=== PATIENT | male | born 1965 | race Caucasian/White ===

== ENCOUNTER 2016-09-18 13:39 | Emergency (ER) | payer OTHER ==
[~2016-09-18] VITALS: Wt 100.0 kg
[2016-09-18] MEDS ORDERED: MAGNESIUM SULFATE 2 GM, MULTIVITAMINS 10 ML, THIAMINE 100 MG, FOLIC ACID 1 MG in SOD CH... IV STA (13:49)
[2016-09-18] MEDS ORDERED: LORAZEPAM 2 MG INJ IV STA (13:49)
[2016-09-18 14:50] LABS: ADD SCAN DIFF NO
[2016-09-18 14:53] LABS: BASOPHIL # 0.1 10^3/ul (0.0-0.1); EOSINOPHILS # 0.1 10^3/ul (0.0-0.5); EOSINOPHILS % 1.3 % (0.0-7.0); HEMATOCRIT 39.2 % (42.0-52.0); HEMOGLOBIN 13.3 g/dl (14.0-18.0); LYMPHOCYTES % 37.4 % (15.0-51.0); MEAN CORPUSCULAR HEMOGLOBIN 31.7 pg (29.0-33.0); MEAN CORPUSCULAR HGB CONC 33.9 g/dl (32.0-37.0); MEAN CORPUSCULAR VOLUME 93.6 fl (82.0-101.0); MEAN PLATELET VOLUME 10.2 fl (7.4-10.4); MONOCYTE # 0.6 10^3/ul (0.3-0.9); NEUTROPHIL # 4.2 10^3/ul (1.6-7.5); NEUTROPHILS % 52.9 % (39.0-77.0); PLATELET COUNT 249 10^3/UL (140-415); RED BLOOD COUNT 4.19 10^6/ul (4.70-6.10); RED CELL DISTRIBUTION WIDTH 16.9 % (11.5-14.5)
[2016-09-18 15:03] LABS: INR 0.89; PT RATIO 0.9
[2016-09-18 15:04] LABS: PARTIAL THROMBOPLASTIN TIME 26.4 Sec (25.0-35.0)
[2016-09-18] MEDS ORDERED: MULTI PO (15:06)
[2016-09-18 16:04] LABS: ADD UMIC NO; URINE BILIRUBIN (Dip) NEGATIVE (NEGATIVE); URINE BLOOD (Dip) NEGATIVE (NEGATIVE); URINE COLOR LT. YELLOW (YELLOW); URINE GLUCOSE (Dip) NEGATIVE (NEGATIVE); URINE KETONES (Dip) NEGATIVE (NEGATIVE); URINE LEUKOCYTE ESTERASE (Dip) NEGATIVE (NEGATIVE); URINE NITRITE (Dip) NEGATIVE (NEGATIVE); URINE TOTAL PROTEIN (Dip) NEGATIVE (NEGATIVE); URINE UROBILINOGEN (Dip) 0.2 E.U./dL (0.1-1.0)
[2016-09-18] MEDS ORDERED: morphine 4 MG/ML VIAL IV STA (16:25)
[2016-09-18] MEDS ORDERED: ONDANSETRON 4 MG INJ IV STA (16:25)
[2016-09-18 16:28] LABS: ALBUMIN 4.1 g/dl (3.3-4.9)
[2016-09-18 16:29] LABS: CHLORIDE 100 mmol/L (97-110); POTASSIUM 3.7 mmol/L (3.5-5.1); SODIUM 139 mmol/L (135-144)
[2016-09-18 16:31] LABS: ALANINE AMINOTRANSFERASE 45 IU/L (13-69); ALBUMIN/GLOBULIN RATIO 1.07; ALKALINE PHOSPHATASE 76 IU/L (42-121); ANION GAP 21 (8-16); ASPARTATE AMINO TRANSFERASE 57 IU/L (15-46); BILIRUBIN,INDIRECT 0.3 mg/dl (0-1.1); BILIRUBIN,TOTAL 0.3 mg/dl (0.2-1.3); BLOOD UREA NITROGEN 9 mg/dl (7-20); CARBON DIOXIDE 22 mmol/L (21-31); CREATININE 0.78 mg/dl (0.61-1.24); GLUCOSE 157 mg/dl (70-220); TOTAL PROTEIN 7.9 g/dl (6.1-8.1)
[2016-09-18 16:32] LABS: CALCIUM 9.2 mg/dl (8.4-10.2); SALICYLATE < 1.0 mg/dl (5.0-30.0)
[2016-09-18 16:33] LABS: ACETAMINOPHEN < 10.0 ug/ml (10.0-30.0)
[2016-09-18 16:42] LABS: BARBITURATES Negative (NEGATIVE); BENZODIAZEPINES Negative (NEGATIVE); CANNABINOIDS Negative (NEGATIVE); COCAINE Negative (NEGATIVE); OPIATES Negative (NEGATIVE)
--- NOTE | 2016-09-18 18:28 | ERD ---
ER Documentation Chief Complaint Date/Time DATE: 09/18/16 TIME: 18:25 Chief Complaint ALCOHOL INTOXICATION AND STATES WANTS TO STOP DRINKING, NO SEIZURE ACTIVITY HPI This is a 51-year-old male homeless who presents to the emergency department stating he is experiencing tremors and is concerned that he is going to undergo alcohol withdrawal. The patient indicated his last drink was 6 hours prior to arrival. He drinks alcohol on a daily basis. He denies any fever shaking or chills and no seizure activity. He denies a headache and denies any recent remote blunt or penetrating head trauma. He denies any hemoptysis hematemesis or melanotic stools. He presented to the emergency department brought in by EMS ROS All systems reviewed and are negative except as per history of present illness. Medications Home Meds Reported Medications Multivitamins* (Theragran*) 1 Tab Tab, 1 TAB PO DAILY, TAB 09/18/16 Allergies Allergies: Coded Allergies: No Known Allergy (Unverified , 09/18/16) Physical Exam Vitals Vital Signs Date Time Temp Pulse Resp B/P Pulse Ox O2 Delivery O2 Flow Rate FiO2 09/18/16 14:03 98.2 105 21 130/84 98 Physical Exam Constitutional:Well-developed. Well-nourished. Disheveled. HEENT:Normocephalic. Atraumatic.Pupils were equal round reactive to light. Moist mucous membranes.No tonsillar exudates. No nasoseptal hematoma. No hemotympanum. Neck: No nuchal rigidity. No lymphadenopathy. No posterior cervical spine tenderness or step-offs. Respiratory: Not using accessory muscles of respiration.Lungs were clear to auscultation bilaterally. No rhonchi. No rales. No wheezing. Cardiovascular: Regular rate regular rhythm.No murmurs. No rubs were appreciated.S1, S2 normal. Distal pulses are palpable 2+ bilaterally. GI: Abdomen was soft. Nontender. Non Distended. No pulsatile abdominal masses or bruits. No rebound. No guarding. Bowel sounds were present and normal. Muscle skeletal: Full range of motion of both the upper and lower extremities bilaterally.Normal muscle tone.No assymetrical calf tenderness or swelling. Skin: No petechia, no purpura. No lesions on the palms or the soles of the feet. No maculopapular rash. NEURO: Patient was alert, awake, orientated x3.No facial droop. Gait observed and normal with no ataxia.Speech had regular rate and rhythm. No focal neurological deficits. Patient smelled of alcohol. Result Diagram: 09/18/16 1445 09/18/16 1600 Results 24 hrs Laboratory Tests Test 09/18/16 14:45 09/18/16 15:00 09/18/16 16:00 White Blood Count 8.010^3/ul Red Blood Count 4.1910^6/ul Hemoglobin 13.3g/dl Hematocrit 39.2% Mean Corpuscular Volume 93.6fl Mean Corpuscular Hemoglobin 31.7pg Mean Corpuscular Hemoglobin Concent 33.9g/dl Red Cell Distribution Width 16.9% Platelet Count 91150^3/UL Mean Platelet Volume 10.2fl Neutrophils % 52.9% Lymphocytes % 37.4% Monocytes % 7.0% Eosinophils % 1.3% Basophils % 1.0% Nucleated Red Blood Cells % 0.0/100WBC Neutrophils # 4.210^3/ul Lymphocytes # 3.010^3/ul Monocytes # 0.610^3/ul Eosinophils # 0.110^3/ul Basophils # 0.110^3/ul Nucleated Red Blood Cells # 0.010^3/ul Prothrombin Time 12.0Sec Prothrombin Time Ratio 0.9 INR International Normalized Ratio 0.89 Activated Partial Thromboplast Time 26.4Sec Urine Color LT. YELLOW Urine Clarity CLEAR Urine pH 5.5 Urine Specific Raphine 1.020 Urine Ketones NEGATIVE Urine Nitrite NEGATIVE Urine Bilirubin NEGATIVE Urine Urobilinogen 0.2 E.U./dL Urine Leukocyte Esterase NEGATIVE Urine Hemoglobin NEGATIVE Urine Glucose NEGATIVE% Urine Total Protein NEGATIVE Urine Opiates Screen Negative Urine Barbiturates Negative Urine Amphetamines Screen Negative Urine Benzodiazepines Screen Negative Urine Cocaine Screen Negative Urine Cannabinoids Negative Sodium Level 139mmol/L Potassium Level 3.7mmol/L Chloride Level 100mmol/L Carbon Dioxide Level 22mmol/L Anion Gap 21 Blood Urea Nitrogen 9mg/dl Creatinine 0.78mg/dl Glucose Level 157mg/dl Calcium Level 9.2mg/dl Total Bilirubin 0.3mg/dl Direct Bilirubin 0.00mg/dl Indirect Bilirubin 0.3mg/dl Aspartate Amino Transf (AST/SGOT) 57IU/L Alanine Aminotransferase (ALT/SGPT) 45IU/L Alkaline Phosphatase 76IU/L Total Protein 7.9g/dl Albumin 4.1g/dl Globulin 3.80g/dl Albumin/Globulin Ratio 1.07 Salicylates Level < 1.0mg/dl Acetaminophen Level < 10.0ug/ml Ethyl Alcohol Level 150.0mg/dl Current Medications Medications (Trade) Dose Ordered Sig/Katie Route PRN Reason Start Time Stop Time Status Last Admin Dose Admin Magnesium Sulfate/ Multivitamins/ Thiamine HCl/ Folic Acid/Sodium Chloride (Magnesium Sulfate/Mvi Adult/ Vitamin B1/Folic Acid/NS) 1,015.2 ml @ 500 mls/ hr Q2H2M STAT IV 09/18/16 13:49 09/18/16 15:50 DC 09/18/16 13:00 Lorazepam (Ativan) 1 mg ONCE STAT IV 09/18/16 13:49 09/18/16 13:55 DC 09/18/16 14:58 Morphine Sulfate (morphine) 4 mg ONCE STAT IV 09/18/16 16:25 09/18/16 16:28 DC 09/18/16 17:06 Ondansetron HCl (Zofran Inj) 4 mg ONCE STAT IV 09/18/16 16:25 09/18/16 16:28 DC 09/18/16 17:06 Procedures/MDM This patient presented to the emergency department with acute alcohol intoxication. The patient was very polite and compliant denied any suicidal homicidal thoughts or ideations. The patient had IV access was established in the emergency department received a banana bag which included folic acid thiamine and a multivitamin. The patient is serum ethanol of 150. Patient had no anemia or electrolyte abnormalities. 12 Lead EKG tracing ordered and reviewed by myself showed: Normal sinus rhythm of 85 bpm and no arrhythmia. RI interval normal. QRS duration normal. No ST segment elevation No ST segment depression. Q waves present in the lateral leads V4 V5 V6 less than 1 mm as well as the inferior leads Observation Note: Time: 4 hours Family Hx: No Hypertension Evaluation: Multiple exams showed improving symptoms and no evidence of impending delirium tremors. The patient was stating he was having diffuse myalgias and is requesting analgesic medication. He received intravenous morphine and Zofran. The patient was refusing a social work consult as he states he resides in various homeless shelters. The patient was discharged home in fair condition. They were instructed to return to the emergency department at any time if there was any worsening of their condition. The patient stated they would follow up with their PCP in the next 24-48 hours to initiate a suitable medication regimen under the care of their PCP as well as to allow their PCP to monitor any drug reactions. The patient was discharged home with prescriptions after they gave informed consent to the new medication. They were also fully informed by myself on the adverse effects and adverse drug interactions in order to provide adequate safeguards to prevent possible adverse reactions to medications. Departure Diagnosis: Primary Impression: Alcoholic intoxication Complication of substance-induced condition: uncomplicated Qualified Code: F10.120 - Alcoholic intoxication, uncomplicated Condition: Fair VIKA YANG Sep 18, 2016 18:28
[2016-09-18] MEDS ORDERED: DICLOFENAC SODIUM 37.5 MG/ML VIAL IV STA (19:16)
[2016-09-18] MEDS ORDERED: LORAZEPAM 2 MG INJ IV ONE (21:00)
[2016-09-18] MEDS ORDERED: CHLORDIAZEPOXIDE 25 MG CAP PO ONE (21:00)
[2016-09-18 22:30] VITALS: BP 200/90; PULSE 89; RESP 18
== END 2016-09-18 22:30 | disposition home or self-care (01) ==
LOC: E/R 13:39
DX: F10.120 Alcohol abuse with intoxication, uncomplicated (principal); R40.2142 Coma scale, eyes open, spontaneous, at arrival to emergency department; R40.2252 Coma scale, best verbal response, oriented, at arrival to emergency department; R40.2362 Coma scale, best motor response, obeys commands, at arrival to emergency department
CPT/HCPCS: 80053; 80306; 80307; 81003; 85025; 85610; 85730; 93005; J2060; J2270; J2405; J3411; J3475; J7030; Z7610; 96374; 96375; 96376

== ENCOUNTER 2016-10-01 12:30 | Emergency (ER) | payer SELFPAY ==
[~2016-10-01] VITALS: Ht 170.2 cm; Wt 85.0 kg
[~2016-10-01 12:30] MED LIST: MULTI PO
[2016-10-01 12:38] VITALS: Ht 170.2 cm; Wt 85.0 kg
== END 2016-10-01 16:02 | disposition left against medical advice (07) ==
LOC: E/R 12:30
DX: Z53.21 Procedure and treatment not carried out due to patient leaving prior to being seen by health care provider (principal)

== ENCOUNTER 2016-10-03 13:13 | Emergency (ER) | payer OTHER ==
[~2016-10-03] VITALS: Ht 177.8 cm; Wt 100.0 kg
[2016-10-03 13:50] VITALS: Ht 177.8 cm; Wt 100.0 kg
--- NOTE | 2016-10-03 13:53 | ERD ---
ER Documentation Chief Complaint Date/Time DATE: 10/03/16 TIME: 13:50 Chief Complaint HPI 51-year-old male, homeless, history of alcohol abuse who presents because he was found outside of a supermarket. He describes slight tremor. He states that his last drink was 9 AM this morning. Patient denies any hematemesis, no melena, no abdominal pain, no falls or head injury. He states that he feels generally weak and dehydrated. ROS All systems reviewed and are negative except as per history of present illness. Medications Home Meds Reported Medications Multivitamins* (Theragran*) 1 Tab Tab, 1 TAB PO DAILY, TAB 09/18/16 Allergies Allergies: Coded Allergies: No Known Allergy (Unverified , 09/18/16) PMhx/Soc History of Surgery: No Anesthesia Reaction: No Hx Neurological Disorder: No Hx Respiratory Disorders: No Hx Cardiac Disorders: No Hx Psychiatric Problems: No Hx Miscellaneous Medical Probl: No Hx Alcohol Use: Yes (ALCOHOL ABUSE) FmHx Family History: No diabetes Physical Exam Vitals Vital Signs Date Time Temp Pulse Resp B/P Pulse Ox O2 Delivery O2 Flow Rate FiO2 10/03/16 13:50 98.3 89 18 123/65 100 Physical Exam General: Disheveled, malodorous, eating a sandwich and drinking liquids without difficulty Head: Normocephalic, atraumatic. Eyes: Pupils equally reactive, EOM intact ENT: Moist mucous membranes Neck: Supple, no lymphadenopathy Respiratory: Lungs clear bilaterally, no distress Cardiovascular: RRR, no murmurs, rubs, or gallops Abdominal: Soft, non-tender, non-distended, no peritoneal signs : Deferred MSK: No edema, no unilateral swelling, 5/5 strength Neurologic: Alert and oriented, moving all extremities, normal speech, no focal weakness, no cerebellar signs, no asterixis, no resting tremor Skin: No rash Psych: Normal mood Results 24 hrs Current Medications Medications (Trade) Dose Ordered Sig/Katie Route PRN Reason Start Time Stop Time Status Last Admin Dose Admin Lorazepam (Ativan) 1 mg ONCE ONCE PO 10/03/16 14:00 10/03/16 14:01 Thiamine HCl (Vitamin B1) 100 mg ONCE ONCE PO 10/03/16 14:00 10/03/16 14:01 Folic Acid (Folic Acid) 1 mg ONCE ONCE PO 10/03/16 14:00 10/03/16 14:01 Procedures/MDM The patient presents with signs and symptoms consistent with chronic alcohol abuse clinically however the patient does not exhibit any signs of acute alcohol withdrawal. He has no tachycardia, no hypertension, no tremor, no altered mental status. No signs of complication such as hepatic encephalopathy , hematemesis or GI bleed. The patient is tolerating oral intake without difficulty. He was able to drink 2 things of juice and eat a complex carbohydrate meal. The patient was given 1 mg of p.o. Ativan was given thiamine and folic acid. At this time the patient does not warrant laboratory testing or further diagnostic imaging. He is able to orally hydrate. The patient has no evidence of head injury. At this time there is no sign of acute pathology. The patient can be safely discharged. He was offered social work manager resources and refused. The patient is steady on his feet. We discussed follow up with the patient's primary care doctor within 24 to 48 hours as needed. We also discussed return to the emergency room for worsening symptoms or worsening condition. Outpatient referral: [None required] Discharge Medications: The patient is not a candidate for outpatient benzodiazepines given persistent alcohol abuse. Departure Diagnosis: Primary Impression: Alcohol abuse Additional Impression: Mild dehydration Condition: Stable Patient Instructions: Alcohol Abuse Referrals: COMMUNITY CLINICS YOU HAVE RECEIVED A MEDICAL SCREENING EXAM AND THE RESULTS INDICATE THAT YOU DO NOT HAVE A CONDITION THAT REQUIRES URGENT TREATMENT IN THE EMERGENCY DEPARTMENT. FURTHER EVALUATION AND TREATMENT OF YOUR CONDITION CAN WAIT UNTIL YOU ARE SEEN IN YOUR DOCTORS OFFICE WITHIN THE NEXT 1-2 DAYS. IT IS YOUR RESPONSIBILITY TO MAKE AN APPOINTMENT FOR FOLOW-UP CARE. IF YOU HAVE A PRIMARY DOCTOR --you should call your primary doctor and schedule an appointment IF YOU DO NOT HAVE A PRIMARY DOCTOR YOU CAN CALL OUR PHYSICIAN REFERRAL HOTLINE AT IF YOU CAN NOT AFFORD TO SEE A PHYSICIAN YOU CAN CHOSE FROM THE FOLLOWING [facility] CLINICS [facility] [address] [facility] [address] [facility]. [facility] [address] [facility] [address] [facility] [address] [facility] [facility] [address] [facility]. [facility] YOU HAVE RECEIVED A MEDICAL SCREENING EXAM AND THE RESULTS INDICATE THAT YOU DO NOT HAVE A CONDITION THAT REQUIRES URGENT TREATMENT IN THE EMERGENCY DEPARTMENT. FURTHER EVALUATION AND TREATMENT OF YOUR CONDITION CAN WAIT UNTIL YOU ARE SEEN IN YOUR DOCTORS OFFICE WITHIN THE NEXT 1-2 DAYS. IT IS YOUR RESPONSIBILITY TO MAKE AN APPOINTMENT FOR FOLOW-UP CARE. IF YOU HAVE A PRIMARY DOCTOR --you should call your primary doctor and schedule and appointment IF YOU DO NOT HAVE A PRIMARY DOCTOR YOU CAN CALL OUR PHYSICIAN REFERRAL HOTLINE AT . IF YOU CAN NOT AFFORD TO SEE A PHYSICIAN YOU CAN CHOSE FROM THE FOLLOWING [facility] INSTITUTIONS: [facility] [address] [place] [address] [facility] [address] [place] [address] [facility] [address] [place] [address] JUAN MANUEL VIDAL MD October 03, 2016 13:53
[2016-10-03] MEDS ORDERED: LORAZEPAM 1 MG TAB PO ONE (14:00)
[2016-10-03] MEDS ORDERED: FOLIC ACID 1 MG TAB PO ONE (14:00)
[2016-10-03] MEDS ORDERED: THIAMINE 100 MG TAB PO ONE (14:00)
[2016-10-03 14:18] VITALS: BP 113/62; PULSE 70; RESP 18; TEMP 98.6
== END 2016-10-03 14:20 | disposition home or self-care (01) ==
LOC: E/R 13:13
DX: F10.10 Alcohol abuse, uncomplicated (principal); E86.0 Dehydration; R40.2142 Coma scale, eyes open, spontaneous, at arrival to emergency department; R40.2252 Coma scale, best verbal response, oriented, at arrival to emergency department; R40.2362 Coma scale, best motor response, obeys commands, at arrival to emergency department
CPT/HCPCS: Z7502; Z7610; 99283

== ENCOUNTER 2016-10-05 18:15 | Emergency (ER) | payer OTHER ==
[~2016-10-05] VITALS: Ht 177.8 cm; Wt 95.0 kg
[2016-10-05 18:28] VITALS: Ht 177.8 cm; Wt 95.0 kg
[2016-10-05] MEDS ORDERED: PHENYTOIN 100 MG CAP PO ONE (18:30)
[2016-10-05] MEDS ORDERED: LORAZEPAM 1 MG TAB PO ONE (18:30)
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
== END 2016-10-05 19:12 | disposition home or self-care (01) ==
LOC: E/R 18:15
DX: F10.230 Alcohol dependence with withdrawal, uncomplicated (principal); F17.210 Nicotine dependence, cigarettes, uncomplicated
CPT/HCPCS: 82962; Z7502; Z7610; 99283

== ENCOUNTER 2016-10-06 16:13 | Emergency (ER) | payer OTHER ==
[~2016-10-06] VITALS: Ht 177.8 cm; Wt 90.9 kg
[2016-10-06 16:26] VITALS: Ht 177.8 cm; Wt 90.9 kg
[2016-10-06 19:40] VITALS: BP 108/56; PULSE 107; RESP 20; TEMP 98.4
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
== END 2016-10-06 19:46 | disposition home or self-care (01) ==
LOC: E/R 16:13
DX: F10.120 Alcohol abuse with intoxication, uncomplicated (principal); F17.210 Nicotine dependence, cigarettes, uncomplicated; R40.2142 Coma scale, eyes open, spontaneous, at arrival to emergency department; R40.2252 Coma scale, best verbal response, oriented, at arrival to emergency department; R40.2362 Coma scale, best motor response, obeys commands, at arrival to emergency department
CPT/HCPCS: 99282

== ENCOUNTER 2017-04-01 19:25 | Emergency (ER) | payer MEDICAID, OTHER ==
[~2017-04-01] VITALS: Ht 167.6 cm; Wt 91.0 kg
[2017-04-01 19:36] VITALS: Ht 167.6 cm; Wt 91.0 kg
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
[2017-04-01 23:54] VITALS: BP 125/80; PULSE 94; RESP 18; TEMP 98.8
== END 2017-04-01 23:39 | disposition home or self-care (01) ==
LOC: E/R 19:25
DX: T51.94XA Toxic effect of unspecified alcohol, undetermined, initial encounter (principal); F17.210 Nicotine dependence, cigarettes, uncomplicated; R40.2142 Coma scale, eyes open, spontaneous, at arrival to emergency department; R40.2242 Coma scale, best verbal response, confused conversation, at arrival to emergency department; R40.2362 Coma scale, best motor response, obeys commands, at arrival to emergency department
CPT/HCPCS: 82962; Z7502; 99283

== ENCOUNTER 2017-04-06 01:12 | Emergency (ER) | payer MEDICAID ==
[~2017-04-06] VITALS: Ht 177.8 cm; Wt 98.4 kg
[2017-04-06 01:28] VITALS: Ht 177.8 cm; Wt 98.4 kg
[2017-04-06] MEDS ORDERED: SOD CHLORIDE 0.9% 1,000 ML IV STA (02:12)
--- NOTE | 2017-04-06 03:19 | RADRPT ---
PROCEDURE: XR Chest. CLINICAL INDICATION: Abdominal pain TECHNIQUE: AP Portable chest. COMPARISON: No pertinent prior examinations were submitted for comparison. FINDINGS: The cardiomediastinal silhouette is normal.The aortic arch is calcified. No focal consolidation, ple ural effusion or pneumothorax is seen. The osseous structures are intact. IMPRESSION: No radiographic evidence of acute cardiopulmonary disease. Aortic atherosclerosis. Physician Dennis Date Time Electronically viewed and signed by Jarrod Car Physician on 04/06/2017 03:19 /
--- NOTE | 2017-04-06 05:58 | ERD ---
ER Documentation Chief Complaint Chief Complaint abdominal pain. states been drinking etoh, had seizure episode? HPI 52 year old alcoholic male complaining of chest pain and shortness of breath that started after he states he had "delirium tremens" 4 hours ago. He denies headache, syncope, abdominal pain, fever, or chills. He complains of occasional nausea and vomiting with occasional blood in his stools, no melena. He states the pain in his chest is aching, constant, nonradiating. No alleviating or exacerbating factors. He denies any focal numbness, weakness in his extremities. ROS All systems reviewed and are negative except as per history of present illness. Medications Home Meds Active Scripts Cephalexin* (Keflex*) 500 Mg Capsule, 500 MG PO TID for 7 Days, CAP Prov:VICKEY MALLOY MD 04/06/17 Discontinued Reported Medications Multivitamins* (Theragran*) 1 Tab Tab, 1 TAB PO DAILY, TAB 09/18/16 Allergies Allergies: Coded Allergies: No Known Drug Allergies (Verified Allergy, Unknown, 04/06/17) PMhx/Soc Medical and Surgical Hx: pt denies Medical Hx, pt denies Surgical Hx Hx Alcohol Use: Yes Hx Tobacco Use: Yes FmHx Family History: No diabetes Physical Exam Vitals Vital Signs Date Time Temp Pulse Resp B/P Pulse Ox O2 Delivery O2 Flow Rate FiO2 04/06/17 12:58 98.2 88 20 142/66 98 Room Air 04/06/17 06:30 98 144/65 98 Room Air 04/06/17 01:28 98.1 77 20 129/69 95 Physical Exam Const: disheveled, dirty. foul smelling. sleeping, arousable. no tremors, no apparent distress. not diaphoretic Head: Atraumatic Eyes: Normal Conjunctiva ENT: Normal External Ears, Nose and Mouth. Neck: Full range of motion..~ No meningismus. Resp: Clear to auscultation bilaterally Cardio: Regular rate and rhythm, no murmurs. cap refill <2 seconds Abd: Soft, non tender, non distended. Normal bowel sounds Skin: No petechiae or rashes Back: No midline or flank tenderness. Right buttock with abrasion and diffuse erythema without fluctuance. tender and warm to palpation. no crepitus. Rectal: No gross blood in rectal vault. 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 extremities Psych: Normal Mood and Affect Result Diagram: 04/06/175 04/06/17424 Results 24 hrs Laboratory Tests Test 04/06/17 04:25 04/06/17 07:00 04/06/17 07:22 White Blood Count 6.810^3/ul Red Blood Count 4.1810^6/ul Hemoglobin 13.9g/dl Hematocrit 41.3% Mean Corpuscular Volume 98.8fl Mean Corpuscular Hemoglobin 33.3pg Mean Corpuscular Hemoglobin Concent 33.7g/dl Red Cell Distribution Width 13.7% Platelet Count 40994^3/UL Mean Platelet Volume 10.1fl Neutrophils % 51.3% Lymphocytes % 36.2% Monocytes % 7.8% Eosinophils % 3.7% Basophils % 0.7% Nucleated Red Blood Cells % 0.0/100WBC Neutrophils # 3.510^3/ul Lymphocytes # 2.510^3/ul Monocytes # 0.510^3/ul Eosinophils # 0.310^3/ul Basophils # 0.110^3/ul Nucleated Red Blood Cells # 0.010^3/ul Sodium Level 143mmol/L Potassium Level 4.7mmol/L Chloride Level 104mmol/L Carbon Dioxide Level 27mmol/L Anion Gap 17 Blood Urea Nitrogen 6mg/dl Creatinine 0.70mg/dl Glucose Level 95mg/dl Calcium Level 9.1mg/dl Total Bilirubin 0.2mg/dl Direct Bilirubin 0.00mg/dl Indirect Bilirubin 0.2mg/dl Aspartate Amino Transf (AST/SGOT) 29IU/L Alanine Aminotransferase (ALT/SGPT) 32IU/L Alkaline Phosphatase 95IU/L Troponin I < 0.012ng/ml < 0.012ng/ml Total Protein 7.7g/dl Albumin 3.7g/dl Globulin 4.00g/dl Albumin/Globulin Ratio 0.92 Lipase 98U/L Stool Occult Blood POSITIVE Current Medications Medications (Trade) Dose Ordered Sig/Katie Route PRN Reason Start Time Stop Time Status Last Admin Dose Admin Sodium Chloride (NS) 1,000 ml @ 1,000 mls/hr Q1H STAT IV 04/06/17 02:12 04/06/17 03:11 DC 04/06/17 04:01 Chlordiazepoxide (Librium) 50 mg ONCE ONCE PO 04/06/17 06:30 04/06/17 06:31 DC 04/06/17 08:15 Famotidine (Pepcid) 20 mg ONCE STAT PO 04/06/17 06:53 04/06/17 06:55 DC 04/06/17 08:15 Miscellaneous Medication (Gi Cocktail (2)) 40 ml ONCE STAT PO 04/06/17 06:53 04/06/17 06:55 DC 04/06/17 08:15 Acetaminophen (Tylenol Tab) 1,000 mg ONCE STAT PO 04/06/17 12:05 04/06/17 12:09 DC 04/06/17 12:10 Acetaminophen (Tylenol Tab) 500 mg STK-MED ONCE .ROUTE 04/06/17 12:08 04/06/17 12:09 DC Procedures/MDM EMERGENT LABS AND DIAGNOSTIC STUDIES: Lab Results above were reviewed and interpreted by me. CBC within normal limits CMP within normal limits with no uremia Troponin within normal limits 12-lead EKG was interpreted by Yael Malloy MD: Sinus tachycardia at 102 bpm Normal axis Normal intervals No acute ST or T wave changes suggestive of acute ischemia or STEMI. Radiology Results as interpreted by Radiology below were reviewed by SYari Malloy MD: CXR: no acute abnormalities, aortic atherosclerosis noted. Initial Nursing notes reviewed. Previous Medical Records requested via the Electronic Health Record. EMERGENCY DEPARTMENT COURSE / MEDICAL DECISION MAKING: This is an alcoholic patient presenting with multiple complaints. Vitals were only remarkable for mild tachycardia upon arrival. There is no evidence of delirium tremens. He may have some mild alcohol withdrawal, but when I first approached him he was sleeping comfortably in bed. Cardiac workup was initiated. His heart score is 2. Initial troponin and EKG did not show evidence of ischemia. He did also complain that he had some occasional hematemesis and occasional blood in his stools. However his hemoglobin is within normal limits today and his BUN is not elevated. His rectal exam did not show any gross blood or melena. At this point I believe the patient is stable for discharge with continued outpatient follow-up if his repeat troponin is within normal limits. I signed out to the oncoming physician, Dr. Archuleta, pending repeat troponin. If this is normal, she was instructed to discharge the patient. I spoke with the patient regarding this and recommended outpatient follow-up. 1 dose of Librium was given here while he was waiting. Patient remained hemodynamically stable. Patient's blood pressure was elevated (>120/80) but appears stable without evidence of hypertensive emergency or urgency. The patient was counseled about the risks of hypertension and urged to pursue outpatient monitoring and therapy within a week with their primary care physician. Departure Diagnosis: Primary Impression: Chest pain Chest pain type: unspecified Qualified Code: R07.9 - Chest pain, unspecified type Additional Impression: Cellulitis of buttock, right Condition: Fair VICKEY MALLOY MD Apr 06, 2017 05:58
[2017-04-06] MEDS ORDERED: CHLORDIAZEPOXIDE 25 MG CAP PO ONE (06:30)
[2017-04-06] MEDS ORDERED: FAMOTIDINE 20 MG TAB PO STA (06:53)
[2017-04-06] MEDS ORDERED: LIDOCAINE/MYLANTA 40 ML BTL PO STA (06:53)
[2017-04-06] MEDS ORDERED: CEPH-443 PO (07:04)
[2017-04-06] MEDS ORDERED: ACETAMINOPHEN 500 MG TAB PO STA (12:05)
[2017-04-06] MEDS ORDERED: ACETAMINOPHEN 500 MG TAB ONE (12:08)
[2017-04-06 12:58] VITALS: BP 142/66; PULSE 88; RESP 20; TEMP 98.2
== END 2017-04-06 13:00 | disposition home or self-care (01) ==
LOC: EDBD → E/R 01:12 → MERGE 01:12 → E/R 13:00
DX: L03.317 Cellulitis of buttock (principal); Z87.891 Personal history of nicotine dependence
CPT/HCPCS: 71010; 80053; 82270; 83690; 84484; 85025; 93005; J7030; Z7502; Z7610

== ENCOUNTER 2017-04-29 12:15 | Inpatient (IN) | payer MEDICAID, OTHER ==
[2017-04-29] VITALS (14 sets, daily range): BP systolic 120–154; BP diastolic 62–114; PULSE 73–93; RESP 14–31; Ht 177.8 cm; Wt 97.2 kg
[~2017-04-29] VITALS: Ht 177.8 cm; Wt 97.2 kg
[~2017-04-29 12:15] MED LIST changes: +CEPH-443 PO; -MULTI PO
[2017-04-29] MEDS ORDERED: HYDR-3671 PO (12:57)
[2017-04-29] MEDS ORDERED: no (12:57)
[2017-04-29] MEDS ORDERED: FOLI-49 PO (12:57)
[2017-04-29] MEDS ORDERED: ENOX120D3 SQ (12:57)
[2017-04-29] MEDS ORDERED: NICO1PAT6 TD (12:57)
[2017-04-29] MEDS ORDERED: METO25TA4 PO (12:57)
[2017-04-29] MEDS ORDERED: PHEN125O2 PO (12:57)
[2017-04-29] MEDS ORDERED: THIA100T10 PO (12:57)
[2017-04-29] MEDS ORDERED: AMLO-147 PO (12:57)
[2017-04-29] MEDS ORDERED: HEPARIN 1000 UNITS/ML 10 ML INJ ONE (13:43)
[2017-04-29] MEDS ORDERED: LIDOCAINE 1% (MDV) 20 ML INJ ONE (13:43)
[2017-04-29] MEDS ORDERED: IODIXANOL LOCM 100 ML BTL ONE (13:43)
[2017-04-29] MEDS ORDERED: FENTAnyl 50 MCG/ML VIAL ONE ×2 (13:44→14:29)
[2017-04-29] MEDS ORDERED: NITROGLYCERIN (IC) 100 MCG/ML INJ ONE (13:44)
[2017-04-29] MEDS ORDERED: MIDAZOLAM 1 MG/ML 2 ML INJ ONE ×2 (13:44→14:28)
[2017-04-29] MEDS ORDERED: VERAPAMIL 5 MG INJ ONE (13:44)
[2017-04-29] MEDS ORDERED: SOD CHLORIDE 0.9% 500 ML ONE (13:44)
[2017-04-29] MEDS ORDERED: BIVALIRUDIN 250MG /NS 50 ML 50 ML IVPB ONE (14:18)
[2017-04-29] MEDS ORDERED: ASPIRIN 325 MG TAB ONE (14:19)
[2017-04-29] MEDS ORDERED: CLOPIDOGREL 300 MG TAB ONE (14:19)
[2017-04-29] MEDS ORDERED: SOD CHLORIDE 0.9% 1,000 ML IV SCH (15:03)
--- NOTE | 2017-04-29 15:09 | CONS ---
Date/Time of Note Date/Time of Note DATE: 04/29/17 TIME: 15:06 Assessment/Plan Assessment/Plan Chief Complaint/Hosp Course NSTEMI s/p PCI of mid PDA with Integrity 2.5 x 22 bare metal stent CAD: nonobstructive intermediate disease of the prox RCA and mid LAD to be managed medically Alcohol abuse: counseled on cessation Homeless: social work eval for resources Plan: -ASA 81mg lifelong -plavix at least one month, preferably one year -lipitor 40mg -metoprolol 25mg -social work eval Problems: Consultation Date/Type/Reason Admit Date/Time Date of Consultation: Apr 29, 2017 Type of Consultation: Interventional Cardiology Reason for Consultation NSTEMI Referring Provider: DOMINICK LEO MD Hx of Present Illness 52 yo M with a h/o alcohol abuse, homeless, who presented with intoxication and chest pain to [facility]. Trops were elevated to 0.3 so pt had a cardiac CT which showed possible obstructive LAD and Cx disease as well as an obstructive PDA lesion. The pt was transferred to [facility] for cardiac cath which confirmed intermediate disease in the LAD and obstructive disease in the PDA for which he is now s/p PCI. Bare metal stent was used as the pt may not have appropriate outpt follow-up and with possible compliance issues. per HPI Past Medical History alcohol abuse Social History Smoking Status: Current every day smoker Exam/Review of Systems Vital Signs Vitals Vital Signs Date Time Temp Pulse Resp B/P Pulse Ox O2 Delivery O2 Flow Rate FiO2 04/29/17 12:42 98.8 16 132/66 99 Room Air Exam Constitutional: alert, oriented Psych: nl mood/affect, no complaints Head: atraumatic, normocephalic Eyes: nl conjunctiva Neck: supple, No jvd Respiratory: clear to auscultation, No crackles/rales Cardiovascular: regular rate and rhythm, No edema, No systolic murmur Gastrointestinal: non-tender, soft Musculoskeletal: nl extremities to inspection Neurological: nl mental status, nl speech MANISH INTERIANO Apr 29, 2017 15:09
--- NOTE | 2017-04-29 15:12 | OPR ---
Date/Time of Note Date/Time of Note DATE: 04/29/17 TIME: 15:09 Operative Report Preoperative Diagnosis NSTEMI Postoperative Diagnosis NSTEMI Surgeon see signature line Customer Support Technician none Anesthesia Type: moderate sedation Estimated Blood Loss: minimal Transfusion none Specimen none Grafts/Implants none Complications none Procedure Description Procedure Date:04/29/2017 Nuclear Medicine Specialist/surgeon: Manish Tatum MD. Procedures Performed: 1)Left heart catheterization with selective left and right coronary angiography. 2)Balloon angioplasty and stenting of the mid PDA with a Integrity 2.5 x 22 bare metal stent. Pre-operative Diagnosis:NSTEMI Post-operative Diagnosis: NSTEMI Indications: 52 yo M with a h/o alcohol abuse, homeless, who presented with intoxication and chest pain to [facility]. Trops were elevated to 0.3 so pt had a cardiac CT which showed possible obstructive LAD and Cx disease as well as an obstructive PDA lesion. The pt was transferred to [facility] for cardiac cath. I had an extensive conversation with the pt regarding medication compliance and the risk of stent thrombosis and should he need a stent and miss doses of his antiplatelets. He reassured me that he would take his medications, stop alcohol abuse, and get outpt follow-up (has insurance). Description of Procedure: After informed consent, the patient was brought to the cardiac catheterization lab. The procedure site was prepped and draped in usual manner. The patient was premedicated with versed 2 mg and fentanyl 50 mcg. 3 mL lidocaine was injected into the right wrist. Next using the posterior wall technique, the 6/ 5 tajik sheath was inserted into the right radial artery. Next using the JL3.5 and Ted right, selective angiography of the left and right coronary arteries were obtained. Hemodynamics were obtained when the JR catheter inadvertently entered the LV. Left ventricle angiography was not obtained. The decision was made to proceed with PCI of the PDA due to the obstructive nature of the lesion and NSTEMI. Bare metal stent was used due to alcoholism, possible noncompliance, homelessness. A JR 4 guide was advanced and engaged into the right coronary artery. After appropriate anticoagulation and antiplatelets were given, the Runthrough angioplasty wire was advanced past the lesion. Next the 2.0 X 12 balloon was used to dilate the lesion times 2 at a maximum of 8 genoveva. Subsequently, the Integrity 2.5 x 22 stent was advanced to the lesion and deployed at 10 genoveva. Next the stent was post dilated with the 2.5 X 12 noncompliant balloon times 2at a maximum of 12 genoveva. Final angiography revealed GARRETT 3 flow, no edge dissection, and appropriate stent expansion. Images of the proximal RCA were reobtained and showed ~50% disease which will be managed medically Next all equipment was removed and hemostasis was achieved by TR band. Findings: Anatomy/Hemodynamics: Left main:short, luminal irregularities LAD:mid 40% Diagonal:luminal irregularities Circumflex:20 % plaquing Obtuse marginal: large OM without significant disease. A very small subbranch (< 0.5mm vessel) has diffuse 99% disease) RCA:prox 50%, mid 30-40% PDA: mid 90% LV angiography:not done LV-Ao: no gradient LVEDP: 11 mmHg Contrast used: 135 mL Fluoroscopy time:16.5 min Medications used: Versed 2 Fentanyl 50 Radial cocktail: 5000 units heparin, 2.5 verapamil, 200 NTG angiomax ASA 325mg plavix 600mg Equipment used: 6 tajik JR 4 guide Runthrough angioplasty wire 2 x 12 balloon Integrity 2.5 x 22 bare metal stent 2.5 x 12 noncompliant balloon Estimated blood loss<10 mL. Specimen: none Grafts/implants: none Complications: none Assessment: NSTEMI s/p PCI of mid PDA with Integrity 2.5 x 22 bare metal stent CAD: nonobstructive intermediate disease of the prox RCA and mid LAD to be managed medically Alcohol abuse: counseled on cessation Homeless: social work eval for resources Plan: -ASA 81mg lifelong -plavix at least one month, preferably one year MANISH TATUM Apr 29, 2017 15:12
[2017-04-29] MEDS ORDERED: ONDANSETRON 4 MG INJ IV PRN (15:30)
[2017-04-29] MEDS ORDERED: morphine 2 MG INJ IV PRN (15:30)
[2017-04-29] MEDS: CHLORDIAZEPOXIDE 5 MG CAP PO SCH ×2 (16:30→21:04)
[2017-04-29] MEDS: LORAZEPAM 2 MG INJ IV PRN ×2 (16:53→21:25)
[2017-04-29] MEDS: NICOTINE (21 MG/24 HR) PATCH TRANSDERM SCH (18:10)
--- NOTE | 2017-04-29 20:57 | HP ---
DATE OF ADMISSION: 04/29/2017 CHIEF COMPLAINT: Non-STEMI. HISTORY OF PRESENT ILLNESS: This is a 52-year-old alcoholic male with a past medical history of ETO H abuse, who presented to an outside hospital with complaints of chest pain and shortness of breath. The patient was admitted to an outside hospital, was seen by cardiology, was noted to have unstabl e angina, ruled in for a possible non-STEMI. The patient was treated medically and then transferred to [facility], where he was seen by Dr. Tatum and underwent elective cardiac catheterization. The patient had PCI and bare metal stent placed to the diagonal artery. Th e patient tolerated procedure well without any acute complications. Upon my evaluation of the patient at this time, the patient states that he is a heavy alcoholic, dri nking 1 pint of vodka a day and 12 to 24 packs of beer daily. The patient states that he feels that he is currently going through withdrawals, and he has gone through alcoholic withdrawals before. T here have been no reports of hemoptysis, hematemesis, hematochezia. PAST MEDICAL HISTORY: History of alcohol abuse. FAMILY HISTORY: Noncontributory. SOCIAL HISTORY: Positive tobacco use. Positive alcohol abuse. MEDICATIONS: The patient's medications have been reviewed. PAST SURGICAL HISTORY: None. ALLERGIES: NONE. REVIEW OF SYSTEMS: A 14-point review of systems was conducted. Pertinent positives stated in HPI, otherwise negative. PHYSICAL EXAMINATION: VITALS: Blood pressure is 154/79, respirations 31, pulse 83, temperature 97.6. HEENT: Head is normocephalic. NECK: Supple. HEART: Regular rate. LUNGS: Show diminished breath sounds at the base. ABDOMEN: Soft, nontender to palpation. No rebound or guarding. EXTREMITIES: Negative for clubbing, cyanosis. No edema. DERMATOLOGIC: No rashes. MUSCULOSKELETAL: No joint effusions. NEUROLOGIC: No change in exam. MEDICATIONS: The patient's medications have been reviewed. LABORATORY DATA: From outside hospital was reviewed. ASSESSMENT AND PLAN: This is a 52-year-old male who presents with: 1. Non-ST elevation myocardial infarction. Patient is status post PCI to the [facility]. Plan is to continue current medical management, continue aspirin, Plavix, continue metoprolol, continue Lipitor and monitor closely. Follow up with cardiology. 2. History of ETOH abuse with early withdrawal. We will start the patient on Librium and Ativan. We will adjust medications, up titrate as needed. 3. Hypertension. Continue current blood pressure regimen. 4. Dyslipidemia. Continue statin therapy. 5. Homelessness. We will place a social media job titles and a caseworker consult for placement. Please note I spent up to 25 minutes of [id number] time with the patient. The patient is FULL COD E. Dictated By: AIDA WHEELER/ELIZABETH Conf#: [id number] DID#: [id number]
[2017-04-29] MEDS: METOPROLOL 25 MG TAB PO SCH (21:03)
[2017-04-29] MEDS: ATORVASTATIN 40 MG TAB PO SCH (21:03)
[2017-04-30] VITALS (24 sets, daily range): BP systolic 98–156; BP diastolic 49–105; PULSE 69–90; RESP 10–32
[2017-04-30 05:44] LABS: BASOPHIL # 0.1 10^3/ul (0.0-0.1); BASOPHILS % 1.1 % (0.0-2.0); EOSINOPHILS # 0.3 10^3/ul (0.0-0.5); EOSINOPHILS % 4.2 % (0.0-7.0); HEMATOCRIT 40.9 % (42.0-52.0); HEMOGLOBIN 13.5 g/dl (14.0-18.0); LYMPHOCYTES # 2.1 10^3/ul (0.8-2.9); LYMPHOCYTES % 29.2 % (15.0-51.0); MEAN CORPUSCULAR HEMOGLOBIN 33.1 pg (29.0-33.0); MEAN CORPUSCULAR VOLUME 100.2 fl (82.0-101.0); MEAN PLATELET VOLUME 11.1 fl (7.4-10.4); MONOCYTE # 0.9 10^3/ul (0.3-0.9); MONOCYTES % 12.7 % (0.0-11.0); NEUTROPHIL # 3.9 10^3/ul (1.6-7.5); NEUTROPHILS % 52.7 % (39.0-77.0); PLATELET COUNT 248 10^3/UL (140-415); RED BLOOD COUNT 4.08 10^6/ul (4.70-6.10); RED CELL DISTRIBUTION WIDTH 14.3 % (11.5-14.5); WHITE BLOOD COUNT 7.3 10^3/ul (4.8-10.8)
[2017-04-30 06:29] LABS: CALCIUM 9.6 mg/dl (8.4-10.2); CREATININE 0.82 mg/dl (0.61-1.24); MAGNESIUM 2.1 mg/dl (1.7-2.5); PHOSPHORUS 4.2 mg/dl (2.5-4.9); POTASSIUM 4.6 mmol/L (3.5-5.1)
[2017-04-30] MEDS: CLOPIDOGREL 75 MG TAB PO SCH (08:21)
[2017-04-30] MEDS: NICOTINE (21 MG/24 HR) PATCH TRANSDERM SCH (08:22)
[2017-04-30] MEDS: LISINOPRIL 10 MG TAB PO SCH (08:22)
[2017-04-30] MEDS: ASPIRIN 81 MG TAB PO SCH (08:22)
[2017-04-30] MEDS: METOPROLOL 25 MG TAB PO SCH ×2 (08:22→21:03)
[2017-04-30] MEDS: CHLORDIAZEPOXIDE 5 MG CAP PO SCH ×3 (08:22→21:03)
--- NOTE | 2017-04-30 08:45 | PN ---
DATE: 04/30/2017 SUBJECTIVE: The patient is stable. No events overnight. The patient was agitated, although improv ed with Ativan. No overt signs of delirium tremens. No chest pain, no shortness of breath. OBJECTIVE: VITAL SIGNS: Blood pressure is 156/95, respiration 27, pulse 78, temperature 97.8. HEENT: Head is normocephalic. NECK: Supple. HEART: Regular rate. LUNGS: Show diminished breath sounds at the base. ABDOMEN: Soft, nontender to palpation. No rebound or guarding. EXTREMITIES: Negative for clubbing, cyanosis, no edema. DERMATOLOGIC: No rashes. MUSCULOSKELETAL: No joint effusions. NEUROLOGIC: No change in exam. MEDICATIONS: Reviewed. LABORATORY DATA: Shows white count 7.3, hemoglobin 13.5, platelet count 248. BMP within normal ruiz its. ASSESSMENT AND PLAN: 1. Non-ST elevation myocardial infarction. The patient is status post percutaneous coronary interv ention to the mid posterior descending artery. Plan is to continue medical management. Continue as pirin, Plavix, metoprolol. Continue Lipitor. Follow up with cardiology. 2. Hypertension. Continue metoprolol. We will start the patient on lisinopril 10 mg daily and mon itor closely. Treat underlying pain. 3. Dyslipidemia. Continue statin therapy. 4. Alcohol abuse with early withdrawal. Continue Librium, Ativan. We will give patient a banana b ag. 5. Debility. We will place a physical therapy consult for evaluation. CASE MANAGEMENT: The patient is homeless, will need placement. Dictated By: AIDA WHEELER/ELIZABETH Conf#: [id number] DID#: [id number]
[2017-04-30] MEDS: MULTIVITAMINS 10 ML, THIAMINE 100 MG, FOLIC ACID 1 MG in SOD CHLORIDE 0.9% 1,000 ML IVPB SCH (09:46)
[2017-04-30 10:23] LABS: ADD UMIC YES; UR ASCORBIC ACID NEGATIVE (NEGATIVE); UR BACTERIA FEW /HPF (NONE SEEN); UR BILIRUBIN (Dip) NEGATIVE (NEGATIVE); UR BLOOD (Dip) NEGATIVE (NEGATIVE); UR CLARITY CLEAR (CLEAR); UR COLOR STRAW (YELLOW); UR GLUCOSE (Dip) NEGATIVE (NEGATIVE); UR KETONES (Dip) NEGATIVE (NEGATIVE); UR LEUKOCYTE ESTERASE (Dip) 2+ Leu/ul (NEGATIVE); UR NITRITE (Dip) NEGATIVE (NEGATIVE); UR RBC 5 /HPF (0-5); UR SPECIFIC GRAVITY (Dip) 1.004 (1.003-1.030); UR TOTAL PROTEIN (Dip) NEGATIVE (NEGATIVE); UR UROBILINOGEN (Dip) NEGATIVE (NEGATIVE)
--- NOTE | 2017-04-30 18:33 | CONS ---
Date/Time of Note Date/Time of Note DATE: 04/30/17 TIME: 18:32 Assessment/Plan Assessment/Plan Chief Complaint/Hosp Course NSTEMI s/p PCI of mid PDA with Integrity 2.5 x 22 bare metal stent CAD: nonobstructive intermediate disease of the prox RCA and mid LAD to be managed medically Alcohol abuse: counseled on cessation Homeless: social work eval for resources -ASA 81mg lifelong -plavix at least one month, preferably one year -lipitor 40mg -metoprolol 25mg -management of withdrawals per primary -transfer to tele -dispo per primary Problems: Consultation Date/Type/Reason Admit Date/Time Apr 29, 2017 at 15:06 Initial Consult Date 04/29/17 Type of Consultation: Interventional Cardiology Referring Provider: DOMINICK LEO MD 24 HR Interval Summary Free Text/Dictation No o/n events. No CP or SOB Exam/Review of Systems Vital Signs Vitals Vital Signs Date Time Temp Pulse Resp B/P Pulse Ox O2 Delivery O2 Flow Rate FiO2 04/30/17 18:00 76 17 137/87 92 Room Air 04/30/17 16:00 98.1 Intake and Output 04/29/17 04/29/17 04/30/17 14:59 22:59 06:59 Intake Total 2025 ml 800 ml Output Total 720 ml 1510 ml Balance 1305 ml -710 ml Exam Constitutional: alert, oriented Psych: nl mood/affect, no complaints Head: atraumatic, normocephalic Neck: No jvd Respiratory: clear to auscultation, No crackles/rales Cardiovascular: regular rate and rhythm, No edema Gastrointestinal: non-tender, soft Neurological: nl mental status, nl speech Results Result Diagram: 04/30/17 0400 04/30/17 0400 Results 24 hrs Laboratory Tests Test 04/30/17 04:00 04/30/17 09:36 White Blood Count 7.3 Red Blood Count 4.08 L Hemoglobin 13.5 L Hematocrit 40.9 L Mean Corpuscular Volume 100.2 Mean Corpuscular Hemoglobin 33.1 H Mean Corpuscular Hemoglobin Concent 33.0 Red Cell Distribution Width 14.3 Platelet Count 248 Mean Platelet Volume 11.1 H Neutrophils % 52.7 Lymphocytes % 29.2 Monocytes % 12.7 H Eosinophils % 4.2 Basophils % 1.1 Nucleated Red Blood Cells % 0.0 Neutrophils # 3.9 Lymphocytes # 2.1 Monocytes # 0.9 Eosinophils # 0.3 Basophils # 0.1 Nucleated Red Blood Cells # 0.0 Sodium Level 141 Potassium Level 4.6 Chloride Level 105 Carbon Dioxide Level 27 Anion Gap 14 Blood Urea Nitrogen 13 Creatinine 0.82 Glucose Level 105 Calcium Level 9.6 Phosphorus Level 4.2 Magnesium Level 2.1 Urine Color STRAW Urine Clarity CLEAR Urine pH 7.0 Urine Specific [place] 1.004 Urine Ketones NEGATIVE Urine Nitrite NEGATIVE Urine Bilirubin NEGATIVE Urine Urobilinogen NEGATIVE Urine Leukocyte Esterase 2+ H Urine Microscopic RBC 5 Urine Microscopic WBC 10 H Urine Bacteria FEW A Urine Hemoglobin NEGATIVE Urine Random Creatinine 26.53 Urine Random Sodium 50 Urine Glucose NEGATIVE Urine Total Protein 15.0 H Medications Medications Current Medications Morphine Sulfate (morphine) 2 mg Q2H PRN IV FOR NON CARDIAC PAIN (4-10) Last administered on 04/30/17 07:30; Admin Dose 2 MG; Start 04/29/17 at 15:30 Ondansetron HCl (Zofran Inj) 4 mg Q4H PRN IV NAUSEA AND/OR VOMITING; Start at 15:30 Aspirin (Aspirin) 81 mg DAILY PO Last administered on 04/30/17 08:22; Admin Dose 81 MG; Start 04/30/17 at 09:00 Clopidogrel Bisulfate (plaVIX) 75 mg DAILY PO Last administered on 04/30/17 08:21; Admin Dose 75 MG; Start 04/30/17 at 09:00 Atorvastatin Calcium (Lipitor) 40 mg HS PO Last administered on 04/29/17 21: 03; Admin Dose 40 MG; Start 04/29/17 at 21:00 Metoprolol Tartrate (Lopressor) 25 mg BID PO Last administered on 04/30/17 08 :22; Admin Dose 25 MG; Start 04/29/17 at 21:00 Nicotine (Nicoderm 21 Mg/ 24hr) 1 patch DAILY TRANSDERM Last administered on 08:22; Admin Dose 1 PATCH; Start 04/29/17 at 16:30 Lorazepam (Ativan) 1 mg Q4H PRN IV WITHDRAWALS Last administered on 04/29/17 21:25; Admin Dose 1 MG; Start 04/29/17 at 16:30 Chlordiazepoxide (Librium) 10 mg TID PO Last administered on 04/30/17 12:40; Admin Dose 10 MG; Start 04/29/17 at 16:30 Acetaminophen (Tylenol Tab) 650 mg Q6H PRN PO PAIN AND OR ELEVATED TEMP; Start 04/30/17 at 07:00 Influenza Virus Vaccine (Fluzone) 0.5 ml ONCE ONCE IM* ; Start 05/02/17 at 09:00 ; Stop 05/02/17 at 09:01 Lisinopril 10 mg 10 mg DAILY PO Last administered on 04/30/17 08:22; Admin Dose 10 MG; Start 04/30/17 at 09:00 Multivitamins/ Thiamine HCl/ Folic Acid/Sodium Chloride (Mvi Adult/ Vitamin B1/ Folic Acid/NS) 1,011.2 ml @ 125 mls/ hr DAILY@09 IVPB Last administered on 09:46; Admin Dose 125 MLS/HR; Start 04/30/17 at 09:00 MANISH INTERIANO Apr 30, 2017 18:33
[2017-04-30] MEDS: ATORVASTATIN 40 MG TAB PO SCH (21:03)
[2017-05-01] VITALS (10 sets, daily range): BP systolic 123–155; BP diastolic 61–86; PULSE 68–73; RESP 17–20
[2017-05-01] MEDS: ASPIRIN 81 MG TAB PO SCH (08:34)
[2017-05-01] MEDS: MULTIVITAMINS 10 ML, THIAMINE 100 MG, FOLIC ACID 1 MG in SOD CHLORIDE 0.9% 1,000 ML IVPB SCH (08:34)
[2017-05-01] MEDS: CLOPIDOGREL 75 MG TAB PO SCH (08:34)
[2017-05-01] MEDS: LISINOPRIL 10 MG TAB PO SCH (08:35)
[2017-05-01] MEDS: NICOTINE (21 MG/24 HR) PATCH TRANSDERM SCH (08:35)
[2017-05-01] MEDS: METOPROLOL 25 MG TAB PO SCH ×2 (08:35→20:27)
[2017-05-01 08:41] LABS: BASOPHIL # 0.1 10^3/ul (0.0-0.1); BASOPHILS % 1.1 % (0.0-2.0); EOSINOPHILS # 0.3 10^3/ul (0.0-0.5); EOSINOPHILS % 3.9 % (0.0-7.0); HEMATOCRIT 44.5 % (42.0-52.0); LYMPHOCYTES # 2.2 10^3/ul (0.8-2.9); LYMPHOCYTES % 29.8 % (15.0-51.0); MEAN CORPUSCULAR HEMOGLOBIN 32.3 pg (29.0-33.0); MEAN CORPUSCULAR HGB CONC 31.5 g/dl (32.0-37.0); MEAN CORPUSCULAR VOLUME 102.5 fl (82.0-101.0); MEAN PLATELET VOLUME 10.6 fl (7.4-10.4); MONOCYTE # 0.9 10^3/ul (0.3-0.9); MONOCYTES % 11.7 % (0.0-11.0); NEUTROPHILS % 53.2 % (39.0-77.0); PLATELET COUNT 256 10^3/UL (140-415); RED BLOOD COUNT 4.34 10^6/ul (4.70-6.10); RED CELL DISTRIBUTION WIDTH 14.2 % (11.5-14.5); WHITE BLOOD COUNT 7.4 10^3/ul (4.8-10.8)
[2017-05-01 09:13] LABS: ALBUMIN 4.4 g/dl (3.3-4.9); BILIRUBIN,INDIRECT 0.3 mg/dl (0-1.1); BILIRUBIN,TOTAL 0.3 mg/dl (0.2-1.3)
[2017-05-01 09:14] LABS: CALCIUM 9.3 mg/dl (8.4-10.2); CREATININE 0.84 mg/dl (0.61-1.24); MAGNESIUM 2.1 mg/dl (1.7-2.5); PHOSPHORUS 4.5 mg/dl (2.5-4.9); POTASSIUM 4.3 mmol/L (3.5-5.1)
[2017-05-01] MEDS: CHLORDIAZEPOXIDE 5 MG CAP PO SCH ×3 (09:48→20:27)
--- NOTE | 2017-05-01 09:53 | CONS ---
Date/Time of Note Date/Time of Note DATE: 05/01/17 TIME: 09:52 Assessment/Plan Assessment/Plan Chief Complaint/Hosp Course NSTEMI s/p PCI of mid PDA with Integrity 2.5 x 22 bare metal stent CAD: nonobstructive intermediate disease of the prox RCA and mid LAD to be managed medically Alcohol abuse: counseled on cessation Homeless: social work eval for resources -ASA 81mg lifelong -plavix at least one month, preferably one year -lipitor 40mg -metoprolol 25mg -management of withdrawals per primary -dispo per primary Problems: Consultation Date/Type/Reason Admit Date/Time Apr 29, 2017 at 15:06 Initial Consult Date 04/29/17 Type of Consultation: Interventional Cardiology Referring Provider: DOMINICK LEO MD 24 HR Interval Summary Free Text/Dictation No o/n events. Doing well. No chest pain or SOB. Awaiting placement Exam/Review of Systems Vital Signs Vitals Vital Signs Date Time Temp Pulse Resp B/P Pulse Ox O2 Delivery O2 Flow Rate FiO2 05/01/17 08:10 71 05/01/17 08:02 98.9 17 138/86 97 04/30/17 22:20 Room Air Intake and Output 04/30/17 04/30/17 05/01/17 15:00 23:00 07:00 Intake Total 800 ml 1911.2 ml 340 ml Output Total 1420 ml 520 ml Balance -620 ml 1391.2 ml 340 ml Exam Constitutional: alert, oriented Psych: nl mood/affect, no complaints Head: atraumatic, normocephalic Eyes: nl conjunctiva Neck: No jvd Respiratory: clear to auscultation, No crackles/rales Cardiovascular: regular rate and rhythm, No systolic murmur Gastrointestinal: non-tender, soft Neurological: nl mental status, nl speech Results Result Diagram: 05/01/1782605/01/17826 Results 24 hrs Laboratory Tests Test 05/01/17 08:27 White Blood Count 7.4 Red Blood Count 4.34 L Hemoglobin 14.0 Hematocrit 44.5 Mean Corpuscular Volume 102.5 H Mean Corpuscular Hemoglobin 32.3 Mean Corpuscular Hemoglobin Concent 31.5 L Red Cell Distribution Width 14.2 Platelet Count 256 Mean Platelet Volume 10.6 H Neutrophils % 53.2 Lymphocytes % 29.8 Monocytes % 11.7 H Eosinophils % 3.9 Basophils % 1.1 Nucleated Red Blood Cells % 0.0 Neutrophils # 4.0 Lymphocytes # 2.2 Monocytes # 0.9 Eosinophils # 0.3 Basophils # 0.1 Nucleated Red Blood Cells # 0.0 Sodium Level 141 Potassium Level 4.3 Chloride Level 105 Carbon Dioxide Level 24 Anion Gap 16 Blood Urea Nitrogen 11 Creatinine 0.84 Glucose Level 108 Calcium Level 9.3 Phosphorus Level 4.5 Magnesium Level 2.1 Total Bilirubin 0.3 Direct Bilirubin 0.00 Indirect Bilirubin 0.3 Aspartate Amino Transf (AST/SGOT) 101 H Alanine Aminotransferase (ALT/SGPT) 152 H Alkaline Phosphatase 74 Total Protein 8.0 Albumin 4.4 Medications Medications Current Medications Morphine Sulfate (morphine) 2 mg Q2H PRN IV FOR NON CARDIAC PAIN (4-10) Last administered on 04/30/17 07:30; Admin Dose 2 MG; Start 04/29/17 at 15:30 Ondansetron HCl (Zofran Inj) 4 mg Q4H PRN IV NAUSEA AND/OR VOMITING; Start at 15:30 Aspirin (Aspirin) 81 mg DAILY PO Last administered on 05/01/17 08:34; Admin Dose 81 MG; Start 04/30/17 at 09:00 Clopidogrel Bisulfate (plaVIX) 75 mg DAILY PO Last administered on 05/01/17 08:34; Admin Dose 75 MG; Start 04/30/17 at 09:00 Atorvastatin Calcium (Lipitor) 40 mg HS PO Last administered on 04/30/17 21: 03; Admin Dose 40 MG; Start 04/29/17 at 21:00 Metoprolol Tartrate (Lopressor) 25 mg BID PO Last administered on 05/01/17 08 :35; Admin Dose 25 MG; Start 04/29/17 at 21:00 Nicotine (Nicoderm 21 Mg/ 24hr) 1 patch DAILY TRANSDERM Last administered on 08:35; Admin Dose 1 PATCH; Start 04/29/17 at 16:30 Lorazepam (Ativan) 1 mg Q4H PRN IV WITHDRAWALS Last administered on 04/29/17 21:25; Admin Dose 1 MG; Start 04/29/17 at 16:30 Acetaminophen (Tylenol Tab) 650 mg Q6H PRN PO PAIN AND OR ELEVATED TEMP; Start 04/30/17 at 07:00 Influenza Virus Vaccine (Fluzone) 0.5 ml ONCE ONCE IM* ; Start 05/02/17 at 09:00 ; Stop 05/02/17 at 09:01 Lisinopril 10 mg 10 mg DAILY PO Last administered on 05/01/17 08:35; Admin Dose 10 MG; Start 04/30/17 at 09:00 Multivitamins/ Thiamine HCl/ Folic Acid/Sodium Chloride (Mvi Adult/ Vitamin B1/ Folic Acid/NS) 1,011.2 ml @ 125 mls/ hr DAILY@09 IVPB Last administered on 08:34; Admin Dose 125 MLS/HR; Start 04/30/17 at 09:00 Chlordiazepoxide (Librium) 20 mg TID PO Last administered on 05/01/17 09:48; Admin Dose 20 MG; Start 05/01/17 at 09:00 MANISH INTERIANO May 01, 2017 09:53
--- NOTE | 2017-05-01 11:45 | PN ---
DATE: 05/01/2017 SUBJECTIVE: The patient is stable, although he states he feels he is withdrawing from ETOH use, con tinues to have mild tremors. No other events noted. OBJECTIVE: VITAL SIGNS: Blood pressure is 124/64, respirations 17, pulse 69, temperature . HEENT: Head is normocephalic. NECK: Supple. HEART: Regular rate. LUNGS: Show diminished breath sounds at the base. ABDOMEN: Soft, nontender to palpation without rebound or guarding. EXTREMITIES: Negative for clubbing, cyanosis, noted tremor. DERMATOLOGIC: No rashes. MUSCULOSKELETAL: No joint effusions. NEUROLOGIC: No change in exam. MEDICATIONS: The patient's medications have been reviewed. LABORATORY DATA: Has been reviewed, currently pending. ASSESSMENT AND PLAN: 1. Non-ST elevation myocardial infarction. The patient is status post percutaneous coronary interv ention to the mid posterior descending artery. Continue current medical management with aspirin, Pl avix, metoprolol, Lipitor and lisinopril. Follow up with cardiology. 2. Hypertension. Continue current blood pressure regimen. 3. Dyslipidemia. Continue statin therapy. 4. Alcohol abuse with mild to moderate withdrawal. We will up titrate Librium to 20 mg t.i.d. We will give Ativan IV p.r.n. 5. Debility. Place a physical therapy consult for evaluation. 6. Disposition: The patient is pending transfer to senior living facility per case management. 7. Tobacco use. Continue nicotine patch. 8. Gastrointestinal and deep venous thrombosis prophylaxis. Continue proton pump inhibitor and seq uential leg squeezers. Dictated By: AIDA WHEELER/ELIZABETH Conf#: [id number] DID#: [id number]
[2017-05-01 15:32] LABS: CREATININE, RANDOM URINE 30 mg/dL (20-370); MICROALBUMIN <0.2 mg/dL; MICROALBUMIN/CREATININE RATIO NOTE (<30)
[2017-05-01] MEDS: ATORVASTATIN 40 MG TAB PO SCH (20:26)
[2017-05-02] VITALS (12 sets, daily range): BP systolic 122–149; BP diastolic 69–83; PULSE 63–79; RESP 16–20
--- NOTE | 2017-05-02 08:00 | CONS ---
Date/Time of Note Date/Time of Note DATE: 05/02/17 TIME: 08:00 Assessment/Plan Assessment/Plan Chief Complaint/Hosp Course NSTEMI s/p PCI of mid PDA with Integrity 2.5 x 22 bare metal stent CAD: nonobstructive intermediate disease of the prox RCA and mid LAD to be managed medically Alcohol abuse: counseled on cessation Homeless: social work eval for resources -ASA 81mg lifelong -plavix at least one month, preferably one year -lipitor 40mg -metoprolol 25mg -management of withdrawals per primary -dispo per primary Problems: Consultation Date/Type/Reason Admit Date/Time Apr 29, 2017 at 15:06 Initial Consult Date 04/29/17 Type of Consultation: Interventional Cardiology Referring Provider: DOMINICK LEO MD 24 HR Interval Summary Free Text/Dictation No o/n events. Awaiting placement Exam/Review of Systems Vital Signs Vitals Vital Signs Date Time Temp Pulse Resp B/P Pulse Ox O2 Delivery O2 Flow Rate FiO2 05/02/17 07:55 97.8 76 18 142/83 95 04/30/17 22:20 Room Air Intake and Output 05/01/17 05/01/17 05/02/17 15:00 23:00 07:00 Intake Total 350 ml Balance 350 ml Exam Constitutional: alert, oriented Psych: nl mood/affect, no complaints Head: atraumatic, normocephalic Neck: No jvd Respiratory: clear to auscultation, No crackles/rales Cardiovascular: regular rate and rhythm, No edema Gastrointestinal: non-tender, soft Neurological: nl mental status, nl speech Results Result Diagram: 05/01/17 0827 05/01/17 0827 Results 24 hrs Laboratory Tests Test 05/01/17 08:27 05/02/17 06:13 White Blood Count 7.4 Red Blood Count 4.34 L Hemoglobin 14.0 Hematocrit 44.5 Mean Corpuscular Volume 102.5 H Mean Corpuscular Hemoglobin 32.3 Mean Corpuscular Hemoglobin Concent 31.5 L Red Cell Distribution Width 14.2 Platelet Count 256 Mean Platelet Volume 10.6 H Neutrophils % 53.2 Lymphocytes % 29.8 Monocytes % 11.7 H Eosinophils % 3.9 Basophils % 1.1 Nucleated Red Blood Cells % 0.0 Neutrophils # 4.0 Lymphocytes # 2.2 Monocytes # 0.9 Eosinophils # 0.3 Basophils # 0.1 Nucleated Red Blood Cells # 0.0 Sodium Level 141 Potassium Level 4.3 Chloride Level 105 Carbon Dioxide Level 24 Anion Gap 16 Blood Urea Nitrogen 11 Creatinine 0.84 Glucose Level 108 Calcium Level 9.3 Phosphorus Level 4.5 Magnesium Level 2.1 Total Bilirubin 0.3 Direct Bilirubin 0.00 Indirect Bilirubin 0.3 Aspartate Amino Transf (AST/SGOT) 101 H Alanine Aminotransferase (ALT/SGPT) 152 H Alkaline Phosphatase 74 Total Protein 8.0 Albumin 4.4 Lab Scanned Report REFERENCE LAB Medications Medications Current Medications Morphine Sulfate (morphine) 2 mg Q2H PRN IV FOR NON CARDIAC PAIN (4-10) Last administered on 04/30/17 07:30; Admin Dose 2 MG; Start 04/29/17 at 15:30 Ondansetron HCl (Zofran Inj) 4 mg Q4H PRN IV NAUSEA AND/OR VOMITING; Start at 15:30 Aspirin (Aspirin) 81 mg DAILY PO Last administered on 05/01/17 08:34; Admin Dose 81 MG; Start 04/30/17 at 09:00 Clopidogrel Bisulfate (plaVIX) 75 mg DAILY PO Last administered on 05/01/17 08:34; Admin Dose 75 MG; Start 04/30/17 at 09:00 Atorvastatin Calcium (Lipitor) 40 mg HS PO Last administered on 05/01/17 20: 26; Admin Dose 40 MG; Start 04/29/17 at 21:00 Metoprolol Tartrate (Lopressor) 25 mg BID PO Last administered on 05/01/17 20 :27; Admin Dose 25 MG; Start 04/29/17 at 21:00 Nicotine (Nicoderm 21 Mg/ 24hr) 1 patch DAILY TRANSDERM Last administered on 08:35; Admin Dose 1 PATCH; Start 04/29/17 at 16:30 Lorazepam (Ativan) 1 mg Q4H PRN IV WITHDRAWALS Last administered on 04/29/17 21:25; Admin Dose 1 MG; Start 04/29/17 at 16:30 Acetaminophen (Tylenol Tab) 650 mg Q6H PRN PO PAIN AND OR ELEVATED TEMP; Start 04/30/17 at 07:00 Influenza Virus Vaccine (Fluzone) 0.5 ml ONCE ONCE IM* ; Start 05/02/17 at 09:00 ; Stop 05/02/17 at 09:01 Lisinopril 10 mg 10 mg DAILY PO Last administered on 05/01/17 08:35; Admin Dose 10 MG; Start 04/30/17 at 09:00 Multivitamins/ Thiamine HCl/ Folic Acid/Sodium Chloride (Mvi Adult/ Vitamin B1/ Folic Acid/NS) 1,011.2 ml @ 125 mls/ hr DAILY@09 IVPB Last administered on 08:34; Admin Dose 125 MLS/HR; Start 04/30/17 at 09:00 Chlordiazepoxide (Librium) 20 mg TID PO Last administered on 05/01/17 20:27; Admin Dose 20 MG; Start 05/01/17 at 09:00 MANISH INTERIANO May 02, 2017 08:00
[2017-05-02] MEDS: ASPIRIN 81 MG TAB PO SCH (08:37)
[2017-05-02] MEDS: MULTIVITAMINS 10 ML, THIAMINE 100 MG, FOLIC ACID 1 MG in SOD CHLORIDE 0.9% 1,000 ML IVPB SCH (08:38)
[2017-05-02] MEDS: METOPROLOL 25 MG TAB PO SCH ×2 (08:38→21:12)
[2017-05-02] MEDS: CHLORDIAZEPOXIDE 5 MG CAP PO SCH ×3 (08:38→21:13)
[2017-05-02] MEDS: LISINOPRIL 10 MG TAB PO SCH (08:38)
[2017-05-02] MEDS: CLOPIDOGREL 75 MG TAB PO SCH (08:38)
[2017-05-02] MEDS: NICOTINE (21 MG/24 HR) PATCH TRANSDERM SCH (08:39)
[2017-05-02] MEDS ORDERED: INFLUENZA VIRUS VACCINE 0.5 ML (DISPENSING) IM* ONE (09:00)
[2017-05-02 09:18] LABS: ALBUMIN 4.4 g/dl (3.3-4.9); BILIRUBIN,INDIRECT 0.3 mg/dl (0-1.1); BILIRUBIN,TOTAL 0.3 mg/dl (0.2-1.3)
[2017-05-02 09:36] LABS: TOTAL PROTEIN 8.2 g/dl (6.1-8.1)
[2017-05-02] MEDS ORDERED: ALTEPLASE (CATHFLO) 2 MG INJ CATHETER ONE (10:30)
--- NOTE | 2017-05-02 11:18 | PN ---
DATE: 05/02/2017 SUBJECTIVE: The patient is stable. No events overnight. No fever, chills, nausea, vomiting. OBJECTIVE: VITAL SIGNS: Blood pressure is 142/82, respiration 18, pulse 76, temperature 97.8. HEENT: Head is normocephalic. NECK: Supple. HEART: Regular rate. LUNGS: Show diminished breath sounds at the base. ABDOMEN: Soft, nontender to palpation without rebound or guarding. EXTREMITIES: Negative for clubbing, cyanosis, no edema. DERMATOLOGIC: No rashes. MUSCULOSKELETAL: No joint effusions. NEUROLOGIC: No change in exam. MEDICATIONS: The patient's medications have been reviewed. LABORATORY DATA: From 05/01 showed AST/ALT 100/152. ASSESSMENT AND PLAN: 1. Non-ST elevation myocardial infarction: The patient is status post percutaneous coronary interv ention to the mid posterior descending artery. Continue current medical management and follow up [facility] cardiology. 2. Hypertension: Continue current blood pressure regimen. 3. Alcohol abuse with mild withdrawal. Continue Librium, Ativan p.r.n. 4. Dyslipidemia: Continue statin therapy. 5. Debility: Continue physical therapy. 6. Tobacco use: Continue nicotine patch. 7. Gastrointestinal and deep venous thrombosis prophylaxis: Continue proton pump inhibitor and seq uential leg squeezers. DISPOSITION: The patient is pending transfer to SNF per case management. Dictated By: AIDA WHEELER/ELIZABETH Conf#: [id number] DID#: [id number]
--- NOTE | 2017-05-02 16:38 | RADRPT ---
PROCEDURE: US Abdomen. CLINICAL INDICATION: Abnormal liver function TECHNIQUE: Multiple real-time images were acquired of the patient's abdomen and retroperitoneum ut ilizing a high resolution transducer. COMPARISON: None FINDINGS: The liver is normal in echogenicity and measures 17.4 cm. No focal hepatic masses are seen. The ga llbladder is physiologically distended. There is no evidence of gallstones, gallbladder wall thicke sherie, or pericholecystic fluid. The intra and extrahepatic bile ducts are normal in caliber. The c ommon bile duct measures 4.4 mm. Midline images demonstrate the pancreas to be normal in echogenicity without obvious inflammatory ch shireen. Pancreatic tail is suboptimally seen. The aorta and IVC are normal in caliber. The aorta measures 2.3 cm. The spleen is within normal limits and measures 11.1 cm. Survey views of the kidneys demonstrate no evidence of hydronephrosis or renal calculi. The right k idney measures 10.1 cm, and the left kidney measures 10.4 cm. IMPRESSION: Unremarkable abdominal ultrasound. No evidence of cholelithiasis or acute cholecystitis. RPTAT: HH .Apollo Rabago MD, MD Date Time Electronically viewed and signed by .Apollo Rabago MD, MD on 05/02/2017 16:37 .W/
[2017-05-02] MEDS: ATORVASTATIN 40 MG TAB PO SCH (21:11)
[2017-05-03] VITALS (12 sets, daily range): BP systolic 116–157; BP diastolic 68–87; PULSE 67–79; RESP 18–20
[2017-05-03 06:15] LABS: BASOPHIL # 0.1 10^3/ul (0.0-0.1); BASOPHILS % 1.4 % (0.0-2.0); EOSINOPHILS # 0.3 10^3/ul (0.0-0.5); EOSINOPHILS % 4.5 % (0.0-7.0); HEMATOCRIT 41.6 % (42.0-52.0); HEMOGLOBIN 13.6 g/dl (14.0-18.0); LYMPHOCYTES # 1.7 10^3/ul (0.8-2.9); LYMPHOCYTES % 23.7 % (15.0-51.0); MEAN CORPUSCULAR HEMOGLOBIN 33.2 pg (29.0-33.0); MEAN CORPUSCULAR HGB CONC 32.7 g/dl (32.0-37.0); MEAN CORPUSCULAR VOLUME 101.5 fl (82.0-101.0); MEAN PLATELET VOLUME 11.6 fl (7.4-10.4); MONOCYTES % 13.9 % (0.0-11.0); NEUTROPHIL # 4.1 10^3/ul (1.6-7.5); NEUTROPHILS % 56.2 % (39.0-77.0); PLATELET COUNT 245 10^3/UL (140-415); RED CELL DISTRIBUTION WIDTH 14.2 % (11.5-14.5); WHITE BLOOD COUNT 7.3 10^3/ul (4.8-10.8)
[2017-05-03 07:04] LABS: CALCIUM 9.5 mg/dl (8.4-10.2); CREATININE 0.94 mg/dl (0.61-1.24); MAGNESIUM 2.1 mg/dl (1.7-2.5); PHOSPHORUS 4.8 mg/dl (2.5-4.9); POTASSIUM 4.4 mmol/L (3.5-5.1)
[2017-05-03] MEDS: ASPIRIN 81 MG TAB PO SCH (08:27)
[2017-05-03] MEDS: CLOPIDOGREL 75 MG TAB PO SCH (08:28)
[2017-05-03] MEDS: CHLORDIAZEPOXIDE 5 MG CAP PO SCH ×3 (08:29→21:12)
[2017-05-03] MEDS: METOPROLOL 25 MG TAB PO SCH ×2 (08:29→21:10)
[2017-05-03] MEDS: LISINOPRIL 10 MG TAB PO SCH (08:30)
[2017-05-03] MEDS: NICOTINE (21 MG/24 HR) PATCH TRANSDERM SCH (08:30)
[2017-05-03] MEDS: MULTIVITAMINS 10 ML, THIAMINE 100 MG, FOLIC ACID 1 MG in SOD CHLORIDE 0.9% 1,000 ML IVPB SCH (08:30)
--- NOTE | 2017-05-03 10:42 | CONS ---
Date/Time of Note Date/Time of Note DATE: 05/03/17 TIME: 10:41 Consult Date/Type/Reason Admit Date/Time Apr 29, 2017 at 15:06 Initial Consult Date 04/29/17 Type of Consultation: med Reason for Consultation The patient is stable. No events overnight. No fever, chills, nausea, vomiting. OBJECTIVE: HEENT: Head is normocephalic. NECK: Supple. HEART: Regular rate. LUNGS: Show diminished breath sounds at the base. ABDOMEN: Soft, nontender to palpation without rebound or guarding. EXTREMITIES: Negative for clubbing, cyanosis, no edema. DERMATOLOGIC: No rashes. MUSCULOSKELETAL: No joint effusions. NEUROLOGIC: No change in exam. MEDICATIONS: The patient's medications have been reviewed. Ordering Provider: DOMINICK LEO MD Objective Vital Signs Date Time Temp Pulse Resp B/P Pulse Ox O2 Delivery O2 Flow Rate FiO2 05/03/17 08:11 79 05/03/17 08:00 98.6 18 131/77 99 04/30/17 22:20 Room Air Intake and Output 05/02/17 05/02/17 05/03/17 14:59 22:59 06:59 Intake Total 850 ml Output Total 550 ml Balance 300 ml Results/Medications Result Diagram: 05/03/17 0528 05/03/17 0528 Results 24 hrs Laboratory Tests Test 05/03/17 05:28 White Blood Count 7.3 Red Blood Count 4.10 L Hemoglobin 13.6 L Hematocrit 41.6 L Mean Corpuscular Volume 101.5 H Mean Corpuscular Hemoglobin 33.2 H Mean Corpuscular Hemoglobin Concent 32.7 Red Cell Distribution Width 14.2 Platelet Count 245 Mean Platelet Volume 11.6 H Neutrophils % 56.2 Lymphocytes % 23.7 Monocytes % 13.9 H Eosinophils % 4.5 Basophils % 1.4 Nucleated Red Blood Cells % 0.0 Neutrophils # 4.1 Lymphocytes # 1.7 Monocytes # 1.0 H Eosinophils # 0.3 Basophils # 0.1 Nucleated Red Blood Cells # 0.0 Sodium Level 139 Potassium Level 4.4 Chloride Level 103 Carbon Dioxide Level 28 Anion Gap 12 Blood Urea Nitrogen 14 Creatinine 0.94 Glucose Level 96 Calcium Level 9.5 Phosphorus Level 4.8 Magnesium Level 2.1 Medications Current Medications Morphine Sulfate (morphine) 2 mg Q2H PRN IV FOR NON CARDIAC PAIN (4-10) Last administered on 04/30/17 07:30; Admin Dose 2 MG; Start 04/29/17 at 15:30 Ondansetron HCl (Zofran Inj) 4 mg Q4H PRN IV NAUSEA AND/OR VOMITING; Start at 15:30 Aspirin (Aspirin) 81 mg DAILY PO Last administered on 05/03/17 08:27; Admin Dose 81 MG; Start 04/30/17 at 09:00 Clopidogrel Bisulfate (plaVIX) 75 mg DAILY PO Last administered on 05/03/17 08 :28; Admin Dose 75 MG; Start 04/30/17 at 09:00 Atorvastatin Calcium (Lipitor) 40 mg HS PO Last administered on 05/02/17 21:11 ; Admin Dose 40 MG; Start 04/29/17 at 21:00 Metoprolol Tartrate (Lopressor) 25 mg BID PO Last administered on 05/03/17 08: 29; Admin Dose 25 MG; Start 04/29/17 at 21:00 Nicotine (Nicoderm 21 Mg/ 24hr) 1 patch DAILY TRANSDERM Last administered on 08:30; Admin Dose 1 PATCH; Start 04/29/17 at 16:30 Lorazepam (Ativan) 1 mg Q4H PRN IV WITHDRAWALS Last administered on 04/29/17 21:25; Admin Dose 1 MG; Start 04/29/17 at 16:30 Acetaminophen (Tylenol Tab) 650 mg Q6H PRN PO PAIN AND OR ELEVATED TEMP; Start 04/30/17 at 07:00 Lisinopril 10 mg 10 mg DAILY PO Last administered on 05/03/17 08:30; Admin Dose 10 MG; Start 04/30/17 at 09:00 Multivitamins/ Thiamine HCl/ Folic Acid/Sodium Chloride (Mvi Adult/ Vitamin B1/ Folic Acid/NS) 1,011.2 ml @ 125 mls/ hr DAILY@09 IVPB Last administered on 08:30; Admin Dose 125 MLS/HR; Start 04/30/17 at 09:00 Chlordiazepoxide (Librium) 20 mg TID PO Last administered on 05/03/17 08:29; Admin Dose 20 MG; Start 05/01/17 at 09:00 Assessment/Plan Chief Complaint/Hosp Course ASSESSMENT AND PLAN: 1. Non-ST elevation myocardial infarction: The patient is status post percutaneous coronary intervention to the mid posterior descending artery. Continue current medical management and follow up with cardiology. 2. Hypertension: Continue current blood pressure regimen. 3. Alcohol abuse with mild withdrawal. Continue Librium, Ativan p.r.n. 4. Dyslipidemia: Continue statin therapy. 5. Debility: Continue physical therapy. 6. Tobacco use: Continue nicotine patch. 7. Gastrointestinal and deep venous thrombosis prophylaxis: Continue proton pump inhibitor and sequential leg squeezers. Problems: REMBERTO MCKEON MD May 03, 2017 10:42
[2017-05-03] MEDS: ATORVASTATIN 40 MG TAB PO SCH (21:09)
[2017-05-03] MEDS: ACETAMINOPHEN 325 MG TAB PO PRN (21:11)
[2017-05-04] VITALS (8 sets, daily range): BP systolic 102–133; BP diastolic 58–78; PULSE 56–75; RESP 16–20
[2017-05-04] MEDS: ACETAMINOPHEN 325 MG TAB PO PRN (04:33)
--- NOTE | 2017-05-04 08:03 | CONS ---
Date/Time of Note Date/Time of Note DATE: 05/04/17 TIME: 08:03 Consult Date/Type/Reason Admit Date/Time Apr 29, 2017 at 15:06 Initial Consult Date 04/29/17 Type of Consultation: med Ordering Provider: DOMINICK LEO MD Subjective The patient is stable. No events overnight. No fever, chills, nausea, vomiting. awaiting dispo. OBJECTIVE: HEENT: Head is normocephalic. NECK: Supple. HEART: Regular rate. LUNGS: Show diminished breath sounds at the base. ABDOMEN: Soft, nontender to palpation without rebound or guarding. EXTREMITIES: Negative for clubbing, cyanosis, no edema. DERMATOLOGIC: No rashes. MUSCULOSKELETAL: No joint effusions. NEUROLOGIC: No change in exam. MEDICATIONS: The patient's medications have been reviewed. Objective Vital Signs Date Time Temp Pulse Resp B/P Pulse Ox O2 Delivery O2 Flow Rate FiO2 05/04/17 04:29 56 05/04/17 04:00 97.0 20 133/78 97 04/30/17 22:20 Room Air Intake and Output 05/03/17 05/03/17 05/04/17 15:00 23:00 07:00 Intake Total 600 ml 800 ml Balance 600 ml 800 ml Results/Medications Result Diagram: 05/03/17 0528 05/03/17 0528 Medications Current Medications Morphine Sulfate (morphine) 2 mg Q2H PRN IV FOR NON CARDIAC PAIN (4-10) Last administered on 04/30/17 07:30; Admin Dose 2 MG; Start 04/29/17 at 15:30 Ondansetron HCl (Zofran Inj) 4 mg Q4H PRN IV NAUSEA AND/OR VOMITING; Start at 15:30 Aspirin (Aspirin) 81 mg DAILY PO Last administered on 05/03/17 08:27; Admin Dose 81 MG; Start 04/30/17 at 09:00 Clopidogrel Bisulfate (plaVIX) 75 mg DAILY PO Last administered on 05/03/17 08 :28; Admin Dose 75 MG; Start 04/30/17 at 09:00 Atorvastatin Calcium (Lipitor) 40 mg HS PO Last administered on 05/03/17 21:09 ; Admin Dose 40 MG; Start 04/29/17 at 21:00 Metoprolol Tartrate (Lopressor) 25 mg BID PO Last administered on 05/03/17 21: 10; Admin Dose 25 MG; Start 04/29/17 at 21:00 Nicotine (Nicoderm 21 Mg/ 24hr) 1 patch DAILY TRANSDERM Last administered on 08:30; Admin Dose 1 PATCH; Start 04/29/17 at 16:30 Lorazepam (Ativan) 1 mg Q4H PRN IV WITHDRAWALS Last administered on 04/29/17 21:25; Admin Dose 1 MG; Start 04/29/17 at 16:30 Acetaminophen (Tylenol Tab) 650 mg Q6H PRN PO PAIN AND OR ELEVATED TEMP Last administered on 05/04/17 04:33; Admin Dose 650 MG; Start 04/30/17 at 07:00 Lisinopril 10 mg 10 mg DAILY PO Last administered on 05/03/17 08:30; Admin Dose 10 MG; Start 04/30/17 at 09:00 Multivitamins/ Thiamine HCl/ Folic Acid/Sodium Chloride (Mvi Adult/ Vitamin B1/ Folic Acid/NS) 1,011.2 ml @ 125 mls/ hr DAILY@09 IVPB Last administered on 08:30; Admin Dose 125 MLS/HR; Start 04/30/17 at 09:00 Chlordiazepoxide (Librium) 20 mg TID PO Last administered on 05/03/17 21:12; Admin Dose 20 MG; Start 05/01/17 at 09:00 Assessment/Plan Chief Complaint/Hosp Course ASSESSMENT AND PLAN: 1. Non-ST elevation myocardial infarction: The patient is status post percutaneous coronary intervention to the mid posterior descending artery. Continue current medical management and follow up with cardiology. 2. Hypertension: Continue current blood pressure regimen. 3. Alcohol abuse with mild withdrawal. Continue Librium, Ativan p.r.n. 4. Dyslipidemia: Continue statin therapy. 5. Debility: Continue physical therapy. 6. Tobacco use: Continue nicotine patch. 7. Gastrointestinal and deep venous thrombosis prophylaxis: Continue proton pump inhibitor and sequential leg squeezers. Problems: REMBERTO MCKEON MD May 04, 2017 08:03
[2017-05-04] MEDS ORDERED: LISI10TA2 PO (08:13)
[2017-05-04] MEDS ORDERED: CHLO5CAP2 PO (08:13)
[2017-05-04] MEDS ORDERED: ATOR40TA68 PO (08:13)
[2017-05-04] MEDS ORDERED: ASPI81TA3 PO (08:13)
[2017-05-04] MEDS ORDERED: CLOP75TA28 PO (08:13)
--- NOTE | 2017-05-04 08:21 | DS ---
Date/Time of Note Date/Time of Note DATE: 05/04/17 TIME: 08:18 Discharge Summary Admission/Discharge Info Admit Date/Time Apr 29, 2017 at 15:06 Discharge Date/Time 05/04 Discharge Diagnosis 1. Non-ST elevation myocardial infarction: The patient is status post percutaneous coronary intervention to the mid posterior descending artery. Continue current medical management and follow up with cardiology. 2. Hypertension: Continue current blood pressure regimen. 3. Alcohol abuse with mild withdrawal. Continue Librium taper 4. Dyslipidemia: Continue statin therapy. 5. Debility: Continue physical therapy. 6. Tobacco use: Continue nicotine patch. smoking cessation counseling Patient Condition: Good Consults tasneem Procedures ptca Hx of Present Illness This is a 52-year-old alcoholic male with a past medical history of ETOH abuse , who presented to an outside hospital with complaints of chest pain and shortness of breath. The patient was admitted to an outside hospital, was seen by cardiology, was noted to have unstable angina, ruled in for a possible non- STEMI. Hospital Course This is a 52-year-old alcoholic male with a past medical history of ETOH abuse , who presented to an outside hospital with complaints of chest pain and shortness of breath. The patient was admitted to an outside hospital, was seen by cardiology, was noted to have unstable angina, ruled in for a possible non- STEMI. The patient was treated medically and then transferred to [facility], where he was seen by Dr. Tatum and underwent elective cardiac catheterization. The patient had PCI and bare metal stent placed to the diagonal artery. The patient tolerated procedure well without any acute complications. ASSESSMENT AND PLAN: 1. Non-ST elevation myocardial infarction: The patient is status post percutaneous coronary intervention to the mid posterior descending artery. Continue current medical management and follow up with cardiology. 2. Hypertension: Continue current blood pressure regimen. 3. Alcohol abuse with mild withdrawal. Continue Librium, Ativan p.r.n. 4. Dyslipidemia: Continue statin therapy. 5. Debility: Continue physical therapy. 6. Tobacco use: Continue nicotine patch. 7. Gastrointestinal and deep venous thrombosis prophylaxis: Continue proton pump inhibitor and sequential leg squeezers. Home Meds Reported Medications Nicotine* (Nicotine* Patch) 21 mg/day Patch, 1 EACH TD DAILY, PATCH 04/29/17 Enoxaparin Sodium* (Enoxaparin Sodium*) 120 Mg/0.8 Ml Disp.syrin, 90 MG SQ Q12, SYR 04/29/17 Thiamine* (Thiamine*) 100 Mg Tablet, 100 MG PO DAILY, TAB 04/29/17 Phenytoin* (Phenytoin*) 125 Mg/5 Ml Oral.susp, 300 MG PO Q12 for 30 Days, BOTTLE 04/29/17 Metoprolol Tartrate* (Lopressor*) 25 Mg Tablet, 25 MG PO BID, #60 TAB 04/29/17 Hydralazine Hcl* (Hydralazine Hcl*) 25 Mg Tab, 25 MG PO Q8, #90 TAB 04/29/17 Folic Acid* (Folic Acid*) 1 Mg Tablet, 1 MG PO DAILY, TAB 04/29/17 Amlodipine Besylate* (Amlodipine Besylate*) 10 Mg Tablet, 10 MG PO DAILY, #30 TAB 04/29/17 [no] No Conflict Check 04/29/17 Discontinued Scripts Cephalexin* (Keflex*) 500 Mg Capsule, 500 MG PO TID for 7 Days, CAP Prov:VICKEY JENNINGS MD 04/06/17 Follow-up Plan with me or pmd 1 week Primary Care Provider Not On Staff Doctor Time spent on discharge: > 30 minutes REMBERTO MCKEON MD May 04, 2017 08:21
[2017-05-04] MEDS: MULTIVITAMINS 10 ML, THIAMINE 100 MG, FOLIC ACID 1 MG in SOD CHLORIDE 0.9% 1,000 ML IVPB SCH (08:33)
[2017-05-04] MEDS: CHLORDIAZEPOXIDE 5 MG CAP PO SCH ×2 (08:39→13:18)
[2017-05-04] MEDS: ASPIRIN 81 MG TAB PO SCH (08:39)
[2017-05-04] MEDS: NICOTINE (21 MG/24 HR) PATCH TRANSDERM SCH (08:39)
[2017-05-04] MEDS: LISINOPRIL 10 MG TAB PO SCH (08:40)
[2017-05-04] MEDS: CLOPIDOGREL 75 MG TAB PO SCH (08:41)
[2017-05-04] MEDS: METOPROLOL 25 MG TAB PO SCH (08:41)
== END 2017-05-04 15:23 | disposition home or self-care (01) | DRG 249 ==
LOC: CCL 12:15 → ICU 15:06 → MS4 04-30 22:38
PROVIDERS: ADMIT Internal Medicine; ATTEND Internal Medicine
PROC: B211YZZ Fluoroscopy of Multiple Coronary Arteries using Other Contrast (ICD-10-PCS; 2017-04-29)
PROC: 02703DZ Dilation of Coronary Artery, One Artery with Intraluminal Device, Percutaneous Approach (ICD-10-PCS; principal; 2017-04-29 14:00)
PROC: 4A023N7 Measurement of Cardiac Sampling and Pressure, Left Heart, Percutaneous Approach (ICD-10-PCS; 2017-04-29 14:00)
DX: I21.4 Non-ST elevation (NSTEMI) myocardial infarction (principal); I10 Essential (primary) hypertension; F10.230 Alcohol dependence with withdrawal, uncomplicated; I25.110 Atherosclerotic heart disease of native coronary artery with unstable angina pectoris; F17.210 Nicotine dependence, cigarettes, uncomplicated; Y90.8 Blood alcohol level of 240 mg/100 ml or more; E78.5 Hyperlipidemia, unspecified; F10.229 Alcohol dependence with intoxication, unspecified; Z59.0 Homelessness; Z79.02 Long term (current) use of antithrombotics/antiplatelets; Z79.82 Long term (current) use of aspirin
CPT/HCPCS: 76700; 80048; 80076; 81001; 81003; 82043; 83735; 84100; 84155; 84300; 85025; 87081; 90686; 93458; 97116; 97163; C1725; C1876; C1887; C9600; J0583; J1644; J2060; J2250; J2270; J2997; J3010; J3411; J7030; J7040; Q9967

== ENCOUNTER 2017-05-24 20:42 | Emergency (ER) | payer MEDICAID ==
[~2017-05-24] VITALS: Ht 177.8 cm; Wt 90.9 kg
[~2017-05-24 20:42] MED LIST changes: +AMLO-147 PO; +ASPI81TA3 PO; +ATOR40TA68 PO; -CEPH-443 PO; +CHLO5CAP2 PO; +CLOP75TA28 PO; +FOLI-49 PO; +HYDR-3671 PO; +LISI10TA2 PO; +METO25TA4 PO; +PHEN125O2 PO; +THIA100T10 PO
[2017-05-24] MEDS ORDERED: ONDANSETRON 4 MG INJ IV STA ×2 (20:46→20:47)
[2017-05-24] MEDS ORDERED: SOD CHLORIDE 0.9% 1,000 ML IV STA (20:46)
[2017-05-24] MEDS ORDERED: morphine 2 MG INJ IV STA (20:47)
[2017-05-24 20:49] VITALS: Ht 177.8 cm; Wt 90.9 kg
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
[2017-05-24] MEDS ORDERED: ONDANSETRON 4 MG INJ IM ONE (22:19)
[2017-05-24] MEDS ORDERED: morphine 10 MG INJ IM ONE (22:27)
[2017-05-24] MEDS ORDERED: CEPH500C PO (22:30)
[2017-05-24 22:44] LABS: INR 0.88; PT RATIO 0.9
[2017-05-24 22:45] LABS: PARTIAL THROMBOPLASTIN TIME 28.6 Sec (25.0-35.0)
[2017-05-24 22:48] LABS: AMYLASE 56 U/L (11-123)
[2017-05-24 22:53] LABS: ALANINE AMINOTRANSFERASE 34 IU/L (13-69); ALBUMIN 3.6 g/dl (3.3-4.9); ALBUMIN/GLOBULIN RATIO 0.94; ALKALINE PHOSPHATASE 89 IU/L (42-121); ANION GAP 18 (8-16); ASPARTATE AMINO TRANSFERASE 29 IU/L (15-46); BILIRUBIN,INDIRECT 0.2 mg/dl (0-1.1); BILIRUBIN,TOTAL 0.2 mg/dl (0.2-1.3); BLOOD UREA NITROGEN 5 mg/dl (7-20); CALCIUM 8.5 mg/dl (8.4-10.2); CARBON DIOXIDE 23 mmol/L (21-31); CHLORIDE 102 mmol/L (97-110); CREATININE 0.55 mg/dl (0.61-1.24); GLUCOSE 126 mg/dl (70-220); POTASSIUM 4.5 mmol/L (3.5-5.1); SODIUM 138 mmol/L (135-144); TOTAL PROTEIN 7.4 g/dl (6.1-8.1)
[2017-05-24 22:54] LABS: ACETAMINOPHEN < 10.0 ug/ml (10.0-30.0); SALICYLATE < 1.0 mg/dl (5.0-30.0)
[2017-05-24 22:58] LABS: BASOPHIL # 0.1 10^3/ul (0.0-0.1); BASOPHILS % 0.5 % (0.0-2.0); EOSINOPHILS # 0.1 10^3/ul (0.0-0.5); EOSINOPHILS % 0.7 % (0.0-7.0); HEMATOCRIT 40.7 % (42.0-52.0); HEMOGLOBIN 13.7 g/dl (14.0-18.0); LYMPHOCYTES # 1.3 10^3/ul (0.8-2.9); MEAN CORPUSCULAR HEMOGLOBIN 32.9 pg (29.0-33.0); MEAN CORPUSCULAR HGB CONC 33.7 g/dl (32.0-37.0); MEAN CORPUSCULAR VOLUME 97.8 fl (82.0-101.0); MEAN PLATELET VOLUME 10.2 fl (7.4-10.4); MONOCYTE # 1.1 10^3/ul (0.3-0.9); MONOCYTES % 7.5 % (0.0-11.0); NEUTROPHIL # 11.6 10^3/ul (1.6-7.5); NEUTROPHILS % 81.7 % (39.0-77.0); PLATELET COUNT 256 10^3/UL (140-415); RED BLOOD COUNT 4.16 10^6/ul (4.70-6.10); RED CELL DISTRIBUTION WIDTH 14.6 % (11.5-14.5); WHITE BLOOD COUNT 14.1 10^3/ul (4.8-10.8)
--- NOTE | 2017-05-24 23:23 | RADRPT ---
PROCEDURE: CT Abdomen and Pelvis without contrast. CLINICAL INDICATION: Abdominal pain TECHNIQUE: CT scan of the abdomen and pelvis without contrast was performed on a multidetector hig h-resolution CT scanner. The patient was scanned without intravenous contrast. Coronal and sagittal reformatted images were obtained from the axial source images. Images were reviewed on a high-resol [employer] PACS workstation. The total exam CTDI equals 21.81 mGy and the total exam DLP equals 1271.89 m Gy-cm. One or more the following dose reduction techniques were utilized: Automated exposure control, adjus tment of the mA and / or kV according to patient's size, or use of iterative reconstruction techniqu e. DICOM images are available. COMPARISON: Abdominal ultrasound of 05/02/2017 FINDINGS: Mild dependent atelectasis in posterior lung bases. No pneumoperitoneum is seen. Small to moderate u mbilical hernia containing fat only. No abnormality seen in the liver. There is cholelithiasis. No a bnormality seen in the spleen, pancreas, adrenals. There is nonspecific perinephric soft tissue stra nding bilaterally. Nonspecific minimal left hydronephrosis. No renal or ureteral stone is seen bilat erally. Phleboliths in the pelvis. No definite abnormality of the underdistended stomach is seen. No biliary dilatation is seen. Calcification in thoracoabdominal aorta, splenic, superior mesenteric, bilateral renal and iliac arteries. There is ectasia of the infrarenal abdominal aorta with maximal diameter 2.8 cm. No ascites is seen. No abnormality of the prostate is seen. There is a small to mod erate right inguinal hernia containing fat only. Small diverticulum in the sigmoid colon. There is n o specific evidence of acute diverticulitis seen. There is an unremarkable appendix. No significantly dilated small bowel loops are seen. No enlarged lymph nodes are seen in the abdomen or pelvis. There does appear to be an increase in number of non enlarged bilateral inguinal lymph node s right greater than left. There is nonspecific. Small scattered likely bone islands. Mild degenerat sam changes at sacroiliac joints. Mild degenerative changes in thoracolumbar spine. IMPRESSION: Small to moderate umbilical hernia containing fat only. Cholelithiasis. Nonspecific minimal left hyd ronephrosis. Atherosclerosis. Ectasia of infrarenal abdominal aorta to 2.8 cm diameter. Small to mod erate right inguinal hernia containing fat only. Increase in number of non enlarged bilateral inguin al lymph nodes right greater than left. There is nonspecific. Please see above. RPTAT: HJES .Avery Archibald MD, Date Time Electronically viewed and signed by .Avery Archibald MD, on 05/24/2017 23:22 .S/
[2017-05-24] MEDS ORDERED: CEFAZOLIN 1 GM INJ IM ONE (23:30)
[2017-05-24] MEDS ORDERED: LIDOCAINE 1% (MDV) 10 ML INJ ONE (23:37)
[2017-05-25 05:15] VITALS: BP 126/75; PULSE 72; RESP 16; TEMP 97.8
[2017-05-27] MEDS ORDERED: MULTI PO (00:29)
== END 2017-05-25 05:55 | disposition home or self-care (01) ==
LOC: E/R 20:42
DX: F10.920 Alcohol use, unspecified with intoxication, uncomplicated (principal); L03.311 Cellulitis of abdominal wall; Z87.891 Personal history of nicotine dependence; Z79.82 Long term (current) use of aspirin
CPT/HCPCS: 74176; 80053; 80306; 82150; 83690; 85025; 85610; 85730; 96372; J0690; J2270; J2405; Z7502; Z7610; J7030